=== PATIENT | female | born 1985 | race Caucasian/White ===

== ENCOUNTER 2023-06-23 01:45 | Outpatient (CLI) | payer OTHER, SELFPAY ==
--- OUTSIDE RECORDS SUMMARY | 2023-06-23 01:58 | XMS RPT_ITS | CCD ---
Author Name Unknown Address [address] [place] [address] Organization [facility] Care Team Providers Care Charging Machine Operator Name Role Phone Unavailable Primary Care Provider Unavailabl e MEKA SMITH Referring Unavailable GETACHEW FONSECA Attending Unavail able GETACHEW FONSECA Referring Unavail able GETACHEW FONSECA Attending Unavail able STORMY BARAJAS Referring Unavailable ALIYAH JIMENES Attending Unavailable FRED SMITHCA L Referring Unavailable DON QUINONES Attending Unavailable GETACHEW FONSECA Referring Unavail able MEKA SMITH L Referring Unavailable JENN, STORMY Referring Unavailable AMOS GRADY Attending Unavailable LUIS MEKA L Referring Unavailable BRENTON ASTORGA Attending Unavailable LUIS, MEKA L Referring Unavailable LUIS, MEKA L Attending Unavailable AMOS GRADY Referring Unavailable LUIS, MEKA L Attending Unavailable LUIS, MEKA L Referring Unavailable LUIS, MEKA L Attending Unavailable LUIS MEKA L Attending Unavailable STORMY BARAJAS Attending Unavailable JENN, STORMY Referring Unavailable LUIS MEKA L Attending Unavailable LUIS MEKA L Attending Unavailable Unavailable Primary Care Provider Unavailabl e Medications Current Medications Medication Drug Class(es) Dates Sig (Normalized) Sig (Original) Ethinyl Estradiol / norgestimate (1 source) Progestin, Estrogen Start: 08-31-2012 End: 03-07-2022 take 1 tablet by mouth once daily Norgestimate-Ethiny l Estradiol (ORTHO TRI-CYCLEN LO, 28,) 0.18/0.215/0.25 mg-25 mcg (28) Tab Take 1 tablet by mouth once daily. 3 Package 3 08/31/2012 03/07/2022 Discontinued Completed/Discontinued Medications Medication Drug Class(es) Dates Sig (Normalized) Sig (Original) aspirin 81 mg delayed release oral tablet (5 sources) Platelet Aggregation Inhibitor, Nonsteroidal Anti-inflammatory Drug Start: 03-06-2023 take 1 tablet by mouth once daily aspirin, enteric coated (ASPIRIN, ENTERIC COATED) 81 mg EC tablet Take 1 tablet by mouth once daily. 0 03/06/2023 Active Problems Active Problems Problem Classification Problem Date Documented Date Episodic/Chronic Diabetes or abnormal glucose tolerance complicating ; childbirth; or the puerperium (4 sources) Abnormal glucose complicating ; Translations: [Abnormal glucose level] Onset: 05-12-2023 06-15-2023 Episodic Immunizations and screening for infectious disease (8 sources) Patient encounter status; Translations: [Encounter for screening for human papillomavirus (HPV)] Episodic Other aftercare (1 source) Surgical follow-up; Translations: [Encounter for follow-up examination after completed treatment for conditions other than malignant neoplasm] Episodic Other complications of (3 sources) Missed miscarriage; Translations: [Missed ] Episodic Other complications of (1 source) Uncertain viability of ; Translations: [ with inconclusive viability, not applicable or unspecified] 01-05-2023 Episodic Other complications of (3 sources) Multigravida of advanced maternal age; Translations: [Supervision of elderly multigravida, first trimester] 02-02-2023 Episodic Other complications of (1 source) Supervision of elderly multigravida, second trimester; Translations: [Multigravida of advanced maternal age in second trimester] Onset: 06-15-2023 Episodic Other complications of (1 source) Supervision of elderly multigravida, first trimester; Translations: [AMA (advanced maternal age) multigravida 35+, first trimester] Onset: 03-18-2023 Episodic Other complications of (2 sources) High risk ; Translations: [Supervision of other high risk pregnancies, second trimester] Onset: 05-11-2023 05-11-2023 Episodic Other and delivery including normal (7 sources) Normal ; Translations: [Encounter for supervision of other normal , first trimester] Onset: 03-18-2023 01-05-2023 Episodic Other screening for suspected conditions (not mental disorders or infectious disease) (1 source) Cancer cervix screening status; Translations: [Encounter for screening for malignant neoplasm of cervix] Episodic Residual codes; unclassified (1 source) Gestation period, 8 weeks; Translations: [8 weeks gestation of ] 01-05-2023 Episodic Residual codes; unclassified (2 sources) Gestation period, 12 weeks; Translations: [12 weeks gestation of ] 02-02-2023 Episodic Residual codes; unclassified (1 source) Gestation period, 17 weeks; Translations: [17 weeks gestation of ] 03-06-2023 Episodic Residual codes; unclassified (2 sources) Gestation period, 19 weeks; Translations: [19 weeks gestation of ] 03-18-2023 Episodic Residual codes; unclassified (1 source) 23 weeks gestation of ; Translations: [23 weeks gestation of ] Onset: 05-11-2023 Episodic Residual codes; unclassified (1 source) 12 weeks gestation of ; Translations: [12 weeks gestation of ] Onset: 03-18-2023 Episodic Residual codes; unclassified (2 sources) Gestation period, 31 weeks; Translations: [31 weeks gestation of ] 06-15-2023 Episodic Residual codes; unclassified (2 sources) H/O: miscarriage; Translations: [Personal history of other complications of , childbirth and the puerperium] Onset: 05-11-2023 05-11-2023 Episodic Past or Other Problems Problem Classification Problem Date Documented Da te Episodic/Chronic Other complications of (20 sources) Elderly primigravida; Translations: [Supervision of elderly primigravida, unspecified trimester] Onset: 07-10-2022 Episodic Other complications of (3 sources) with inconclusive viability, not applicable or unspecified; Translations: [ with inconclusive viability] Onset: 01-05-2023 01-05-2023 Episodic Other complications of (1 source) Missed ; Translations: [Missed ] Onset: 07-14-2022 Episodic Residual codes; unclassified (1 source) 17 weeks gestation of ; Translations: [17 weeks gestation of ] Onset: 03-06-2023 Episodic Residual codes; unclassified (1 source) 8 weeks gestation of ; Translations: [8 weeks gestation of ] Onset: 02-02-2023 Episodic Spontaneous (3 sources) Incomplete miscarriage with complication; Translations: [Incomplete spontaneous without complication] Onset: 07-23-2022 Episodic Results Test Name Value Interpretation Reference Range Facil ity Vital Signs Date Time Vital Sign Value Performing Clinician Melinda mishra 06-15-2023 08:56-0500 Body weight 92.08 kg Brenton Astorga MD Work Phone: [facility] 06-15-2023 08:56-0500 Diastolic blood pressure 64 mm[Hg] Brenton Astorga MD Work Phone: [facility] 06-15-2023 08:56-0500 Systolic blood pressure 108 mm[Hg] Brenton Astorga MD Work Phone: [facility] 06-15-2023 08:26-0500 Body weight 92.63 kg Ob Ultrasound Work Phone: [facility] 03-18-2023 10:16-0500 Body weight 85.37 kg Aliyah Jimenes NUCLEAR FUEL PROCESSING TECHNICIAN.CNM Work Phone: [facility] 03-18-2023 10:16-0500 Diastolic blood pressure 72 mm[Hg] Aliyah Jimenes NUCLEAR FUEL PROCESSING TECHNICIAN.CNM Work Phone: [facility] 03-18-2023 10:16-0500 Systolic blood pressure 112 mm[Hg] Aliyah Jimenes NUCLEAR FUEL PROCESSING TECHNICIAN.CNM Work Phone: [facility] 03-06-2023 10:58-0500 Body weight 83.92 kg Amos Grady MD Work Phone: [facility] 03-06-2023 10:58-0500 Diastolic blood pressure 60 mm[Hg] Amos Grady MD Work Phone: [facility] 03-06-2023 10:58-0500 Systolic blood pressure 104 mm[Hg] Amos Grady MD Work Phone: [facility] 02-02-2023 13:14-0400 Body weight 81.65 kg Meka Smith MD Work Phone: [facility] 02-02-2023 13:14-0400 Diastolic blood pressure 68 mm[Hg] Meka Smith MD Work Phone: [facility] 02-02-2023 13:14-0400 Systolic blood pressure 110 mm[Hg] Meka Smith MD Work Phone: [facility] 01-05-2023 09:03-0400 Body height 162.6 cm Stormy Jenn NUCLEAR FUEL PROCESSING TECHNICIAN.LAB ANIMAL TECHNOLOGIST Work Phone: [facility] 01-05-2023 09:03-0400 Body weight 80.74 kg Stormy [place] NUCLEAR FUEL PROCESSING TECHNICIAN.LAB ANIMAL TECHNOLOGIST Work Phone: [facility] 01-05-2023 09:03-0400 Diastolic blood pressure 60 mm[Hg] Stormy Jenn NUCLEAR FUEL PROCESSING TECHNICIAN.LAB ANIMAL TECHNOLOGIST Work Phone: [facility] 01-05-2023 09:03-0400 Systolic blood pressure 112 mm[Hg] Stormy [place] NUCLEAR FUEL PROCESSING TECHNICIAN.LAB ANIMAL TECHNOLOGIST Work Phone: [facility] 07-29-2022 12:27-0400 Diastolic blood pressure 80 mm[Hg] Meka Smith MD Work Phone: [facility] 07-29-2022 12:27-0400 Heart rate 78 /min Meka Smith MD Work Phone: [facility] 07-29-2022 12:27-0400 Respiratory rate 12 /min Meka Smith MD Work Phone: [facility] 07-29-2022 12:27-0400 SaO2% (BldA) [Mass fraction] 98 % Meka Smith MD Work Phone: [facility] 07-29-2022 12:27-0400 Systolic blood pressure 120 mm[Hg] Meka Smith MD Work Phone: [facility] 07-29-2022 11:13-0400 Body weight 80.29 kg Meka Smith MD Work Phone: [facility] 07-23-2022 15:19-0400 Body weight 81.65 kg Meka Smith MD Work Phone: [facility] 07-23-2022 15:19-0400 Diastolic blood pressure 70 mm[Hg] Meka Smith MD Work Phone: [facility] 07-23-2022 15:19-0400 Systolic blood pressure 108 mm[Hg] Meka Smith MD Work Phone: [facility] 07-14-2022 15:26-0400 Body height 162.6 cm Getachew Franklin MD Work Phone: [facility] 07-14-2022 15:26-0400 Body weight 82.01 kg Getachew Franklin MD Work Phone: [facility] 07-14-2022 15:26-0400 Diastolic blood pressure 70 mm[Hg] Getachew Franklin MD Work Phone: [facility] 07-14-2022 15:26-0400 Systolic blood pressure 110 mm[Hg] Getachew Franklin MD Work Phone: [facility] 03-25-2022 16:08-0500 Diastolic blood pressure 78 mm[Hg] Stormy Jenn NUCLEAR FUEL PROCESSING TECHNICIAN.LAB ANIMAL TECHNOLOGIST Work Phone: [facility] 03-25-2022 16:08-0500 Heart rate 76 /min Stormy [place] NUCLEAR FUEL PROCESSING TECHNICIAN.LAB ANIMAL TECHNOLOGIST Work Phone: [facility] 03-25-2022 16:08-0500 Systolic blood pressure 118 mm[Hg] Stormy [place] NUCLEAR FUEL PROCESSING TECHNICIAN.LAB ANIMAL TECHNOLOGIST Work Phone: [facility] 03-25-2022 15:55-0500 Body height 160.7 cm Stormy Jenn NUCLEAR FUEL PROCESSING TECHNICIAN.LAB ANIMAL TECHNOLOGIST Work Phone: [facility] 03-25-2022 15:55-0500 Body weight 80.29 kg Stormy [place] NUCLEAR FUEL PROCESSING TECHNICIAN.LAB ANIMAL TECHNOLOGIST Work Phone: [facility] 03-07-2022 07:22-0500 Body height 160.7 cm Stormy [place] NUCLEAR FUEL PROCESSING TECHNICIAN.LAB ANIMAL TECHNOLOGIST Work Phone: [facility] 03-07-2022 07:22-0500 Body weight 79.38 kg Stormy [place] NUCLEAR FUEL PROCESSING TECHNICIAN.LAB ANIMAL TECHNOLOGIST Work Phone: [facility] 03-07-2022 07:22-0500 Diastolic blood pressure 70 mm[Hg] Stormy Jenn NUCLEAR FUEL PROCESSING TECHNICIAN.LAB ANIMAL TECHNOLOGIST Work Phone: [facility] 03-07-2022 07:22-0500 Systolic blood pressure 110 mm[Hg] Stormy Jenn NUCLEAR FUEL PROCESSING TECHNICIAN.LAB ANIMAL TECHNOLOGIST Work Phone: [facility] Encounters Encounter Date Encounter Type Care Provider Facility Start: 06-15-2023 End: 06-15-2023 ambulatory MEKA SMITH Facility:[facility] Start: 06-15-2023 End: 06-15-2023 Patient encounter procedure District Commercial Superintendent Avani Ultrasound Work Phone: OB/Gynecology Procedures Date Procedure Procedure Detail Performing Clinician Start: 06-15-2023 URINE OB DIP B/O Brenton madrid MD Work Phone: Start: 06-15-2023 Us preg uterus after 1st trimest 04/27 gestation Meka Smith MD Work Phone: Start: 03-18-2023 URINE OB DIP B/O Olivia Jimenes NUCLEAR FUEL PROCESSING TECHNICIAN.CNM Work Phone: Start: 03-18-2023 Us preg uterus after 1st trimest / gestation Meka Smith MD Work Phone: Start: 03-06-2023 URINE OB DIP B/O Amos Grady MD Work Phone: Start: 02-02-2023 Antibody screen MEKA SMITH Plan of Treatment Date Care Activity Detail Author Start: 06-15-2033 Urine microalbumin profile DTaP,Tdap,Td Vaccine (2 - Td or Tdap) [facility] Start: 03-07-2027 HPV TESTING HPV TESTING [facility] Start: 03-07-2027 PAP TESTING PAP TESTING [facility] Start: 03-07-2027 Screening for malign ant neoplasm of cervix [facility] Start: 04-27-2023 Depression Assessment Depression Ass essment [facility] Start: 03-06-2023 End: 06-05-2023 ALPHA FETOPRO MATERNAL [facility] Work Phone: Immunizations Immunization Date Immunization Notes Care Provider Fa yoan 06-15-2023 tetanus toxoid, redu juan jose diphtheria toxoid, and acellular pertussis vaccine, adsorbed Ob Ultrasound Work Phone: [facility] 02-02-2023 influenza, injectabl e, quadrivalent, contains preservative Meka Smith MD Work Phone: [facility] Payers Date Payer Category Payer Unknown [id number] 2018 Unknown [id number] Social History Date Type Detail Facility Start: 06-14-2012 Tobacco smoking stat us [facility] Never smoked tobacco [facility] Start: 06-14-2012 Tobacco use and exposure Smokeless tobacco non-user [facility] Start: 03-07-2022 End: 03-25-2022 Alcohol intake Current drinker of alcohol (finding) [facility] Start: 1985 Sex Assigned At Female [facility] Start: 02-25-2022 End: 03-25-2022 Exposure to SARS-CoV-2 (event) Not sure [facility] Work Phone: Start: 07-10-2022 End: 05-11-2023 Alcohol intake Ex-drinker (finding) [facility] Start: 07-10-2022 Education 17 [facility] Start: 05-30-2022 [facility] Start: 01-05-2023 End: 05-11-2023 History of Social function [facility] Start: 01-05-2023 End: 05-11-2023 Tobacco use panel [facility] National Score (1-10 0), lower number is lower risk 60 [facility] Start: 03-05-2022 Gender identity Identifies as female gender (finding) [facility] Start: 03-05-2022 Sexual orientation Heterosexual (mike ponce) [facility] Goals Date Patient Goal Desired Activity /State Personal health goal Clinical Notes 03-07-2022 to 06-15-2023 Quick Notes - Brenton Astorga MD - 06/15/2023 9:24 AM Keli Dallas Ma - 06/15/2023 9:01 AM ESTPatient InstructionsPatient InstructionsPatient InstructionsPatient Instructions Note Date & Type Note Facility 06-15-2023 Note HNO ID: [id number] Author: ?, ?, ? Service: ? Author Type: ? Type: Progress Notes Filed: 06/15/2023 18:12 Note Text: Patient identified by name and date of . Aliyah Dang presents today for a vaccination of Tdap. Patient denies an allergy to latex: yes Patient denies a severe (life-threatening) allergy to a previous dose of Tdap, DTP, DTaP, DT or Td vaccine. Yes Patient denies history of epilepsy or neurological problems: Yes Patient is afebrile and denies being moderately or severely ill: Yes Patient denies history of Guillain-Fleming Syndrome (a severe paralytic illness): Yes Tdap Adacel injection was given without incident. See immunizations for details of immunizations administered today. VIS sheet provided: Yes Provider Gauri was present in office at time of injection. Keli Loredo Ma [facility] 06-15-2023 Miscellaneous Notes Formattin g of this note might be different from the original. SW- Pt doing well. No pain, ctx, vb, lof. Good FM PE: Gen- NAD, well appearing Abd- Gravid See flowsheet A/p 31 wk gestation - Growth US today and final report pending - Tdap today - Discussed upcoming expectations and questions answered - Reviewed diet and exercise in Brenton Astorga DO documented in this encounter [facility] 06-15-2023 History of Presen t illness Narrative Patient identified by name and date of . Aliyah Dang presents today for a vaccination of Tdap. Patient denies an allergy to latex: yes Patient denies a severe (life-threatening) allergy to a previous dose of Tdap, DTP, DTaP, DT or Td vaccine. Yes Patient denies history of epilepsy or neurological problems: Yes Patient is afebrile and denies being moderately or severely ill: Yes Patient denies history of Guillain-Fleming Syndrome (a severe paralytic illness): Yes Tdap Adacel injection was given without incident. See immunizations for details of immunizations administered today. VIS sheet provided: Yes Provider Gauri was present in office at time of injection. Keli Loredo Ma documented in this encounter [facility] 06-15-2023 Instructions Keli Loredo Ma - 06/15/2023 8:56 AM EST SEQUENTIAL SCREENINGS The [facility] offers sequential screenings for women who are interested in screenings for chromosomal abnormalities and certain defects during a . The sequential screen combines ultrasound and blood tests to determine the risk of chromosomal abnormalities, including Down's Syndrome (Trisomy 21) and Trisomy 18, as well as open neural tube defects including spina bifida. Ultrasound examination is performed between 11 weeks and 13 weeks gestational age. Blood tests are drawn after the ultrasound and again later in the between 15 and 21 weeks gestational age. Please let your physician know if you are interested in this testing. It will require an appointment with our electrocardiogram technician. This is not an ultrasound performed by a physician in our office during a routine visit. SIGNS AND SYMPTOMS OF LABOR 1. Contractions every 10 minutes or more often 2. Clear, pink, or brownish fluid (water) leaking from vagina 3. Feeling that baby is pushing down, pressure 4. Low, dull backache 5. Cramps that feel like a period 6. Cramps with or without diarrhea If you notice any of the above symptoms, contact our office at [phone] and ask to speak with a nurse. After hours, you can call doctors registry at [phone] OR call [facility] at [phone] and ask to have the doctor electronic game developer paged. If you consider this an emergency, dial 9-1-9 or go to your nearest emergency department. NEED HELP? Are you dealing with a violent or abusive relationship? Are you a victim of rape or sexual assult? Call [facility] ([facility] 24 hour Crisis Hotline: 148.489.2182 or 503-948-4138. MANUAL Your Guide to a Healthy manual is now on-line. Visit [email or web address] to download your free copy documented in this encounter [facility] 03-18-2023 Miscellaneous Notes Formattin g of this note might be different from the original. Anatomy ultrasound reviewed. No abnormalities identified. Follow up as clinically indicated. Please place copy in ob chart. Meka Smith MD documented in this encounter [facility] 03-18-2023 Miscellaneous Notes Formattin g of this note might be different from the original. Aliyah Dang is a 37 year old female who presents at 19w0d for a routine visit. Just completed anatomy ultrasound. Awaiting final results. No movement to date. Continues to have irregular nausea/vomiting. Taking Zofran occasionally. Some acid reflux- recommended taking Pepcid. Some swelling in feet after working. Recommended compression stockings. Denies headache, visual changes, chest pain, shortness of breath, vaginal bleeding, leakage of fluid, or dysuria. Size equal to dates. 10 lbs TWG. PTL precautions reviewed. RTC in 4 weeks or sooner if needed. Aliyah Jimenes APRN.CNM documented in this encounter [facility] 03-18-2023 Instructions Aliyah Jimenes APRN.CNM - 03/18/2023 10:15 AM EST Pepcid 20 mg by mouth up to twice daily for acid reflux SEQUENTIAL SCREENINGS The [facility] offers sequential screenings for women who are interested in screenings for chromosomal abnormalities and certain defects during a . The sequential screen combines ultrasound and blood tests to determine the risk of chromosomal abnormalities, including Down's Syndrome (Trisomy 21) and Trisomy 18, as well as open neural tube defects including spina bifida. Ultrasound examination is performed between 11 weeks and 13 weeks gestational age. Blood tests are drawn after the ultrasound and again later in the between 15 and 21 weeks gestational age. Please let your physician know if you are interested in this testing. It will require an appointment with our electrocardiogram technician. This is not an ultrasound performed by a physician in our office during a routine visit. SIGNS AND SYMPTOMS OF LABOR 1. Contractions every 10 minutes or more often 2. Clear, pink, or brownish fluid (water) leaking from vagina 3. Feeling that baby is pushing down, pressure 4. Low, dull backache 5. Cramps that feel like a period 6. Cramps with or without diarrhea If you notice any of the above symptoms, contact our office at [phone] and ask to speak with a nurse. After hours, you can call doctors registry at [phone] OR call [facility] at [phone] and ask to have the doctor electronic game developer paged. If you consider this an emergency, dial 0-4-8 or go to your nearest emergency department. NEED HELP? Are you dealing with a violent or abusive relationship? Are you a victim of rape or sexual assult? Call [facility] ([place]) 24 hour Crisis Hotline: 287.232.2008 or 066-255-8532. MANUAL Your Guide to a Healthy manual is now on-line. Visit [email or web address] to download your free copy documented in this encounter [facility] 03-06-2023 Miscellaneous Notes Formattin g of this note might be different from the original. KJ - No VB/LOF/ctxs. She reports some LE swelling. A&P: Anatomy US scheduled AFP today Amos Grady MD documented in this encounter [facility] 03-06-2023 Mary Jo Sawyer Ma - 03/06/2023 10:41 AM EST SEQUENTIAL SCREENINGS The [facility] offers sequential screenings for women who are interested in screenings for chromosomal abnormalities and certain defects during a . The sequential screen combines ultrasound and blood tests to determine the risk of chromosomal abnormalities, including Down's Syndrome (Trisomy 21) and Trisomy 18, as well as open neural tube defects including spina bifida. Ultrasound examination is performed between 11 weeks and 13 weeks gestational age. Blood tests are drawn after the ultrasound and again later in the between 15 and 21 weeks gestational age. Please let your physician know if you are interested in this testing. It will require an appointment with our electrocardiogram technician. This is not an ultrasound performed by a physician in our office during a routine visit. SIGNS AND SYMPTOMS OF LABOR 1. Contractions every 10 minutes or more often 2. Clear, pink, or brownish fluid (water) leaking from vagina 3. Feeling that baby is pushing down, pressure 4. Low, dull backache 5. Cramps that feel like a period 6. Cramps with or without diarrhea If you notice any of the above symptoms, contact our office at [phone] and ask to speak with a nurse. After hours, you can call doctors registry at [phone] OR call [facility] at [phone] and ask to have the doctor electronic game developer paged. If you consider this an emergency, dial 6-5-6 or go to your nearest emergency department. NEED HELP? Are you dealing with a violent or abusive relationship? Are you a victim of rape or sexual assult? Call [facility] ([place]) 24 hour Crisis Hotline: 111.638.3095 or 436-731-8535. MANUAL Your Guide to a Healthy manual is now on-line. Visit [email or web address] to download your free copy documented in this encounter [facility] 02-03-2023 Miscellaneous Notes Formattin g of this note might be different from the original. Please see pt's [employer] message and advise. Liliana Hancock LPN documented in this encounter [facility] 02-02-2023 Miscellaneous Notes Formattin g of this note might be different from the original. RR- VB No. LOF No. CTXS No. Movement: absent. Other c/o: mild nausea w/ occas emesis but improving Medication list reviewed. Physical Exam See Flow Sheet Abd: soft, nontender, gravid Ext: edema: Trace A/P 12w5d Estimated Date of Delivery: 08/12/23 Labs: all labso rodered d/w her maternity 21 and carrier screen and desires these NT today schedule anatomy scan flu vaccine today. reviewed ASA indication and she will get this AFP next visit Meka Smith M.D. documented in this encounter [facility] 02-02-2023 Instructions Mary Jo Llamas Ma - 02/02/2023 12:59 PM EDT SEQUENTIAL SCREENINGS The [facility] offers sequential screenings for women who are interested in screenings for chromosomal abnormalities and certain defects during a . The sequential screen combines ultrasound and blood tests to determine the risk of chromosomal abnormalities, including Down's Syndrome (Trisomy 21) and Trisomy 18, as well as open neural tube defects including spina bifida. Ultrasound examination is performed between 11 weeks and 13 weeks gestational age. Blood tests are drawn after the ultrasound and again later in the between 15 and 21 weeks gestational age. Please let your physician know if you are interested in this testing. It will require an appointment with our electrocardiogram technician. This is not an ultrasound performed by a physician in our office during a routine visit. SIGNS AND SYMPTOMS OF LABOR 1. Contractions every 10 minutes or more often 2. Clear, pink, or brownish fluid (water) leaking from vagina 3. Feeling that baby is pushing down, pressure 4. Low, dull backache 5. Cramps that feel like a period 6. Cramps with or without diarrhea If you notice any of the above symptoms, contact our office at [phone] and ask to speak with a nurse. After hours, you can call doctors registry at [phone] OR call [facility] at [phone] and ask to have the doctor electronic game developer paged. If you consider this an emergency, dial 9--1 or go to your nearest emergency department. NEED HELP? Are you dealing with a violent or abusive relationship? Are you a victim of rape or sexual assult? Call [facility] ([place]) 24 hour Crisis Hotline: 185.562.6776 or 934-504-2310. MANUAL Your Guide to a Healthy manual is now on-line. Visit [email or web address] to download your free copy documented in this encounter [facility] 01-05-2023 Note HNO ID: [id number] Author: Stormy Barajas APRN.LAB ANIMAL TECHNOLOGIST Service: ? Author Type: Nurse Practitioner Type: Progress Notes Filed: 01/05/2023 9:38 AM Note Text: INITIAL OB ASSESSMENT OB Provider: Stormy Barajas HPI: Aliyah is a 37 year old White Female here to establish Obstetrical Care. Patient's last menstrual period was 11/07/2022. from OB Dating Form. Cycles regular was planned Complaints: None OB History T0 L0 SAB1 IAB0 Ectopic0 Multiple0 Live Births0 Previous history: Prior : never History of 4th degree laceration: NA History of shoulder dystocia: No History of Hypertensive disorders including pre-eclampsia, chronic hypertension or gestational hypertension: NA History of gestational diabetes: No Patient's Risk Screening for delivery: Have you had a prior ontiveros between 20w and 36w6d?: No MEDICAL/PSYCHOSOCIAL HISTORY: History of hemorrhage or bleeding concerns: No Thyroid Disease: No History of chronic hypertension: No History of pre-existing diabetes: No No results found for: ABORHD No weight on file for this encounter. History of abnormal pap: No Prior treatment for cervical dysplasia: none. 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 I don't have enough money to pay my bills: Never Within the past 12 months, have you worried that your food would run out before you had money to buy more: Never In the past 12 months, has lack of reliable transportation kept you from going to medical appointments or work, or from keeping things needed for daily living: Never In the past 12 months, have you had any concerns about having a place to live, or about the condition or quality of your housing: Never Are there any cultural or spiritual needs we should be aware of: No Depression: denies symptoms of depression. OB Depression and Anxiety Screening- This Encounter (since 01/04/2023) Over the past 2 weeks have you felt down, depressed, or hopeless? Negative Over the past two weeks, have you felt little interest or pleasure in doing things?? 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 2 capsule 0 prental multivitamin 27 mg iron- 800 mcg tablet Take 1 tablet by mouth once daily. L.acid/B.animalis,bifidum/FOS (PROBIOTIC COMPLEX ORAL) Take by mouth. No current facility-administered medications for this visit. Allergies As of Date: 01/05/2023 (No Known Allergies) Fully Assessed 01/05/2023 Does patient have penicillin allergy: No REVIEW OF SYSTEMS: GENERAL: Negative for: Fever or Chills HEENT: Negative for: Headache, Impaired Vision, Ringing in Ears, Nosebleeds NECK: Negative for: Swelling, Pain, Stiffness RESPIRATORY: Negative for: Cough, Shortness of breath, Wheezing GASTROINTESTINAL: Positive for: Nausea and Vomiting MUSCULOSKELETAL: Negative for: Muscle or joint pain, stiffness, Joint swelling NEUROLOGIC/PSYCHIATRIC: Negative for: Weakness, Paralysis, Numbness, Tingling, Tremor, Anxiety, Depression, Memory loss SKIN: Negative for: Rash, Itching GENITOURINARY: Negative for: vaginal itching, vaginal discharge, hematuria or dysuria PHYSICAL EXAM: LMP 11/07/2022 GENERAL: pleasant in no apparent distress DERMATOLOGY: Normal, without lesions, non-icteric, and non-hirsute NECK: Supple, full range of motion, no adenopathy, and thyroid normal CHEST: Normal inspiratory effort BREAST: deferred ABDOMEN: soft, non-tender, and no masses NEURO: alert and oriented x (more content not included)... [facility] 01-05-2023 History of Presen t illness Narrative Images from the original note were not included. INITIAL OB ASSESSMENT OB Provider: Stormy Barajas HPI: Aliyah is a 37 year old White Female here to establish Obstetrical Care. Patient's last menstrual period was 11/07/2022. from OB Dating Form. Cycles regular was planned Complaints: None OB History T0 L0 SAB1 IAB0 Ectopic0 Multiple0 Live Births0 Previous history: Prior : never History of 4th degree laceration: NA History of shoulder dystocia: No History of Hypertensive disorders including pre-eclampsia, chronic hypertension or gestational hypertension: NA History of gestational diabetes: No Patient's Risk Screening for delivery: Have you had a prior ontiveros between 20w and 36w6d?: No MEDICAL/PSYCHOSOCIAL HISTORY: History of hemorrhage or bleeding concerns: No Thyroid Disease: No History of chronic hypertension: No History of pre-existing diabetes: No No results found for: ABORHD No weight on file for this encounter. History of abnormal pap: No Prior treatment for cervical dysplasia: none. 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 I don't have enough money to pay my bills: Never Within the past 12 months, have you worried that your food would run out before you had money to buy more: Never In the past 12 months, has lack of reliable transportation kept you from going to medical appointments or work, or from keeping things needed for daily living: Never In the past 12 months, have you had any concerns about having a place to live, or about the condition or quality of your housing: Never Are there any cultural or spiritual needs we should be aware of: No Depression: denies symptoms of depression. OB Depression and Anxiety Screening- This Encounter (since 01/04/2023) Over the past 2 weeks have you felt down, depressed, or hopeless? Negative Over the past two weeks, have you felt little interest or pleasure in doing things? 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 2 capsule 0 prental multivitamin 27 mg iron- 800 mcg tablet Take 1 tablet by mouth once daily. L.acid/B.animalis,bifidum/FOS (PROBIOTIC COMPLEX ORAL) Take by mouth. No current facility-administered medications for this visit. Allergies As of Date: 01/05/2023 (No Known Allergies) Fully Assessed 01/05/2023 Does patient have penicillin allergy: No REVIEW OF SYSTEMS: GENERAL: Negative for: Fever or Chills HEENT: Negative for: Headache, Impaired Vision, Ringing in Ears, Nosebleeds NECK: Negative for: Swelling, Pain, Stiffness RESPIRATORY: Negative for: Cough, Shortness of breath, Wheezing GASTROINTESTINAL: Positive for: Nausea and Vomiting MUSCULOSKELETAL: Negative for: Muscle or joint pain, stiffness, Joint swelling NEUROLOGIC/PSYCHIATRIC: Negative for: Weakness, Paralysis, Numbness, Tingling, Tremor, Anxiety, Depression, Memory loss SKIN: Negative for: Rash, Itching GENITOURINARY: Negative for: vaginal itching, vaginal discharge, hematuria or dysuria PHYSICAL EXAM: LMP 11/07/2022 GENERAL: pleasant in no apparent distress DERMATOLOGY: Normal, without lesions, non-icteric, and non-hirsute NECK: Supple, full range of motion, no adenopathy, and thyroid normal CHEST: Normal inspiratory effort BREAST: deferred ABDOMEN: soft, non-tender, and no masses NEURO: alert and oriented x3,exam grossly non-focal PELVIS: External genitalia normal without lesions. Perineal body intact. No vaginal or cervical lesions. Cervix closed. No adnexal masses or tenderness. Limited OB ultrasound exam: single intrauterine and positive cardiac activity OB Risk Screening: Completed, no positive findings documented. SBIRT Aliyah Dang was given the 4P's screening tool. Aliyah answered as follows: OB Opioid Screening - Last Recorded (since 04/10/2022) Did any of your parents have a problem with alcohol or other drug use? Yes father-ETOH Does your partner have a problem with alcohol or other drug use? No In the past, have you had difficulties in your life because of alcohol or other drugs, including prescription medications? No In the past month have you drunk any alcohol or used other drugs? No Are you taking medication for pain during the either prescribed or not? No Based on the screen and further questions, she is considered at Low risk due to:No past or current use. Positive reinforcement of current behavior. Plan to rescreen early third trimester. Stormy Barajas APRN.LAB ANIMAL TECHNOLOGIST ASSESSMENT: 37 year old at 8w3d wks gestational age PLAN: 1) Patient oriented to practice. Patient given new OB orientation folder. Discussed nutrition, folic acid supplementation, dietary guidelines, exercise, smoking, alcohol, caffeine, and drug use. Discussed gestational weight gain guidelines. Discussed routine OB labs including STD/HIV. Discussed how to access Your guide to a health and the [employer]. Discussed aneuploidy and carrier screening. Regarding aneuploidy screening, nuchal translucency/first trimester early anatomy ultrasound and NIPT were discussed. Regarding carrier screening, the myriad screen was discussed. The risks/benefits and limitations of NIPT/aneuploidy screening were reviewed including the potential for false negative and false positive results. We discussed the availability of professional-society guided carrier screening and reviewed the conditions screened and limitations of screening. The availability of genetic counseling was reviewed. Information on aneuploidy/carrier screening was provided. The patient chooses: Aneuploidy screening: chooses to proceed with First trimester early anatomy ultrasound (12-13w6d) Reviewed midwifery and executive vice president of sales services that are available. 2) AMA: Aneuploidy screening reviewed Follow up in 4 weeks or sooner prn. Stormy Barajas APRN.CNP documented in this encounter [facility] 01-05-2023 Instructions Prashant Lora Cma - 01/05/2023 8:47 AM EDT Please select the following link to access the [facility] Your Guide to a Healthy . [email or web address] documented in this encounter [facility] 08-08-2022 Note HNO ID: [id number] Author: Meka Smith MD Service: ? Author Type: Physician Type: Progress Notes Filed: 08/08/2022 3:14 PM Note Text: VIRTUAL VISIT PROGRESS NOTE This is a virtual visit using Quotte video visit. It required patient-provider interaction for the medical decision making as documented below. I have communicated my name and active licensure. The patient's identity and physical location were verified at the time of this visit. Either the patient or their legal telephone service representative has been informed of the risks and benefits of -- and alternatives to -- treatment through a remote evaluation and consents to proceed with the evaluation remotely. Aliyah Dang is a 37 year old female seen for f/u miscarriage and IPAS in the office. Did well after surgery. Light bleeding for a few days that has stopped. No fever or chills. Good support at home. . HISTORY REVIEWED (electronic chart updated): PAST MEDICAL HISTORY Diagnosis Date NEGATIVE MEDICAL HISTORY PAST SURGICAL HISTORY Procedure Laterality Date APPENDECTOMY FAMILY HISTORY Problem Relation Age of Onset Hypertension Mother Lipids Mother Depression Mother other (accidental ) Father work accident No Known Problems Sister Diabetes Maternal Grandmother Hypertension Maternal Grandmother Aneurysm Maternal Grandfather Heart Maternal Grandfather Dementia Paternal Grandmother Emphysema Paternal Grandfather Social History Tobacco Use Smoking status: Never Smokeless tobacco: Never Vaping Use Vaping Use: Never used Substance Use Topics Alcohol use: Not Currently Comment: socially Drug use: No Current Outpatient Medications Medication Sig doxycycline hyclate (VIBRAMYCIN) 100 mg capsule Take 1 capsule by mouth as directed. prental multivitamin 27 mg iron- 800 mcg tablet Take 1 tablet by mouth once daily. L.acid/B.animalis,bifidum/FOS (PROBIOTIC COMPLEX ORAL) Take by mouth. No current facility-administered medications for this visit. ALLERGIES No Known Allergies PHYSICAL EXAMINATION: VIDEO EXAM: (if completed, performed via video enabled technology) GENERAL: alert and appropriate, in no distress, well-hydrated, well nourished, and happy, smiling, interactive ASSESSMENT: completed SAB, s/p IPAS in office. Doing well. PLAN: D/ wher timing of next menses. Ok to attempt . Cont. PNV. Questions answered. Call w/ +HCG or any questions or concerns. There are no Patient Instructions on file for this visit. Meka Smith MD [facility] 08-08-2022 History of Presen t illness Narrative VIRTUAL VISIT PROGRESS NOTE This is a virtual visit using Quotte video visit. It required patient-provider interaction for the medical decision making as documented below. I have communicated my name and active licensure. The patient's identity and physical location were verified at the time of this visit. Either the patient or their legal telephone service representative has been informed of the risks and benefits of -- and alternatives to -- treatment through a remote evaluation and consents to proceed with the evaluation remotely. Aliyah Dang is a 37 year old female seen for f/u miscarriage and IPAS in the office. Did well after surgery. Light bleeding for a few days that has stopped. No fever or chills. Good support at home. . HISTORY REVIEWED (electronic chart updated): PAST MEDICAL HISTORY Diagnosis Date NEGATIVE MEDICAL HISTORY PAST SURGICAL HISTORY Procedure Laterality Date APPENDECTOMY FAMILY HISTORY Problem Relation Age of Onset Hypertension Mother Lipids Mother Depression Mother other (accidental ) Father work accident No Known Problems Sister Diabetes Maternal Grandmother Hypertension Maternal Grandmother Aneurysm Maternal Grandfather Heart Maternal Grandfather Dementia Paternal Grandmother Emphysema Paternal Grandfather Social History Tobacco Use Smoking status: Never Smokeless tobacco: Never Vaping Use Vaping Use: Never used Substance Use Topics Alcohol use: Not Currently Comment: socially Drug use: No Current Outpatient Medications Medication Sig doxycycline hyclate (VIBRAMYCIN) 100 mg capsule Take 1 capsule by mouth as directed. prental multivitamin 27 mg iron- 800 mcg tablet Take 1 tablet by mouth once daily. L.acid/B.animalis,bifidum/FOS (PROBIOTIC COMPLEX ORAL) Take by mouth. No current facility-administered medications for this visit. ALLERGIES No Known Allergies PHYSICAL EXAMINATION: VIDEO EXAM: (if completed, performed via video enabled technology) GENERAL: alert and appropriate, in no distress, well-hydrated, well nourished, and happy, smiling, interactive ASSESSMENT: completed SAB, s/p IPAS in office. Doing well. PLAN: D/ wher timing of next menses. Ok to attempt . Cont. PNV. Questions answered. Call w/ +HCG or any questions or concerns. There are no Patient Instructions on file for this visit. Meka Smith MD documented in this encounter [facility] 07-29-2022 Note HNO ID: [id number] Author: Meka Smith MD Service: ? Author Type: Physician Type: Progress Notes Filed: 07/29/2022 1:22 PM Note Text: Pre Procedure Assessment: Aliyah Dang is a 37 year old here for an HAYDEE procedure. Patient's last menstrual period was Patient's last menstrual period was 05/16/2022 (exact date). (approximate). Reason for procedure: Incomplete Anxiolytic Checklist Has ride home? Yes Current use of prescribed or non-prescribed opioids or benzos: No Medications: Provided by office:Toradol 60 mg IM Blood Type: A+ Hemoglobin: Hemoglobin Date Value Ref Range Status 07/14/2022 12.5 11.5 - 15.5 g/dL Final Rhophylac Administered:No Procedure end time: 1208 pm Post Procedure Assessment: Time of first post-procedure assessment: 1210 pm Vitals: BP 122/88 HR 75 SpO2 99% RR 12 Bleeding:Light Pain ratin Time of second post-procedure assessment: 1227 pm Vitals: BP 120/80 HR 78 SpO2 98 % RR 12 Bleeding:Moderate Pain Ratin Constance Palomino RN UNIVERSAL PROTOCOL / SAFETY CHECKLIST Procedure to be Performed: IPAS Brief TVUS done, still w/ some debris in uterus, heterogenous 2.6x 3 x 1.8 cm. Sign In: A Moment of CARE was completed. Personnel directly involved with the procedure wore the appropriate PPE (Personal Protective Equipment). Patient/Surrogate Stated/Verified: PATIENT VERIFIED(optional for EMERGENT procedures): Patient name, Date of , Relevant allergies, and The intended procedure Time Out Communication: Intended patient and procedure match the source documents. Consent documented and matches the intended procedure. Relevant labs, photos, and/or imaging studies have been reviewed. No implant(s) inserted. Sign Out: SIGN OUT (optional for EMERGENT procedures): All specimen containers correctly labeled. All instruments, equipment, possible retained foreign bodies accounted for. Post-procedure follow-up management communicated and Plan of Care Visit completed when applicable. Meka Smith M.D. Procedure note: Speculum was placed in the vagina. After prepping the cervix with betadine paracervical block was performed using 10cc of 0.5% lidocaine with 1:100,000 epi. Cervix was grasped with single tooth tenaculum. Cervix was dilated. Using sterile technique, the Manual Vacuum Aspiration device with size 6 cannula was inserted into the uterus and contents were evacuated. Post-procedure ultrasound confirmed no retained tissue. Post-procedure vital signs were obtained and stable Specimen was sent to pathology Patient tolerated procedure well. PLAN: Patient was advised to observe for signs and symptoms of infection including but not limited to fever, malodorous vaginal discharge and/or pain. Bleeding expectations were reviewed. Follow up: in 1-2 weeks or prn Meka Smith MD [facility] Referral ID Status Reason Start Date Expiration Date Visits Re quested Visits Authorized [id number] Closed 07/24/2022 04/26/2023 1 1 [facility]04-04-2023 NoteHNO ID: [id number] Author: Constance Palomino RN Service: ? Author Type: ? Type: Progress Notes Filed: 07/30/2022 4:37 PM Note Text: Please file pended CAM order for patients procedure today. [facility]* Patient Instructions* Constance Palomino RN - 07/29/2022 11:36 AM EDT Information and Instructions: After a Manual Uterine Aspiration (IPAS) Procedure Bleeding Most people have some bleeding after an aspiration procedure. The amount differs for each everyone,ranging from no bleeding to moderate period-like bleeding and lasting for a few days to 2-6 weeks. It is normal to have blood clots when you stand up or use the bathroom during the first few days. It is ok to be as active as you feel ready to be. You may notice more bleeding and cramping during activity. Please call if you are completely soaking through a pad every hour for 2 hours, or passing multiplelarge clots or larger and larger clots. Cramping Most women have some cramping after the procedure. The amount of discomfort varies, as everyone experiences pain in a different way. Some women find that a heating pad or hot water bottle on the stomach or back helps. If you don t have a heating pad, put some rice into a sock and heat it in the microwave, but beware, it s hot! Youmay also take ibuprofen (Motrin/ Advil) or naproxen (Aleve). If you can t take either of those medications you may use acetaminophen (Tylenol). Please call if you have severe pain or cramps that are not relieved by the pain medication. Fever Please call if your temperature is 100.4 degrees or higher for more than 2 hours. Fever can be a sign of infection, so call your doctor if you are feeling sick. You may have received a medication called misoprostol, which can cause a fever on the day of your procedure that goes away on it's own and is not concerning. symptoms You may have symptoms such as nausea, breast tenderness, or fatigue that last for a few days after the procedure. You may also notice some nipple discharge or breast swelling. If this occurs, wear a supportive bra and avoid stimulation. You may also use a cold compress. Your test may remain positive for up to 4 weeks. Please call if you have symptoms that last longer than 7 - 10 days. control For most people, it is physically possible (though unlikely) to become in the next 2 - 4 weeks, so it is important to start a control method if you are not planning a right away. Please discuss this with your provider if you have not already chosen a method. If you would like to become soon after this procedure, please discuss this with your doctor. Follow up Most women do not need a follow up appointment. Your doctor may recommend one, or you may choose toschedule one if you have any concerns, problems, or questions. Please do not put anything in your vagina for 1 week (no vaginal intercourse, toys, tampons, or douching). Do not swim or use hot tubs for 1 week. Baths by yourself (do not share water for 2 weeks) and showers are OK. Important Phone Numbers: [facility] Appointments in Examination Grader ( Early Assessment Clinics) Edith Ma [facility] at [phone] [facility] at [phone] [facility] at [phone] After 4:30 PM or on weekends, you may reach the on-call Examination Grader by calling the clinic where you wereseen. This will automatically transfer you to a contracted answering service, who will then page the appropriate provider. Most calls are returned within 15-20 minutes depending on other direct patient care. When to call the doctor: If your temperature is 100.4 degrees or higher for more than 2 hours. If you have heavy bleeding and soak through more than 2 pads in an hour for 2 hours in a row. If you have severe pain or cramps that are not relieved by the pain medication. LOSS RESOURCES Physical recovery from loss from a spontaneous miscarriage, ectopic , D&C, or a D&E may take several weeks. However, emotional recovery can take longer, and is individualized to each person. Many people have different feelings and experiences with loss or termination. Grief is a normal part of the healing process. Taking time to heal both physically and emotionally after a loss is important. Above all,don t blame yourself. Counseling is available to help you cope with your loss. A loss support group might also be a valuable resource to you and your partner. ONLINE RESOURCES Unspoken Grief: an online miscarriage support resource for miscarriage, stillbirth and loss unspokengrief.org A Heartbreaking Choice: support for diagnosis or termination for medical reasons. http://www.Epiclisteartbreakingchoice.com/ [facility]: ending a for a abnormality http://www.healthtalkonline.org/Pregnancy_children/Ending_a_pregnancy_for_fetal_ abnormality Ending a Wanted : support for patients and families ending a after or maternal medical diagnosis https://endingawantedpregnancy.Living Independently Group Vinh Freire: one person's story about loss and collected resources. http://www.ServiceGems Pili Gift: headquarters in [place] but with online support group https://www.SEAT 4a/agzkkq-xiil-ncwkyhk-groups.html LOCAL RESOURCES Love Lives On, [facility] https://my.[facility].org/locations/[facility]/guest-services/suppo rt Patricia(Families Experiencing Early Loss) [facility] https://consultqd.[facility].org/lhclaqdvp-jdnzugsnz-grbnboblqnu-program-martin evffdo-cbikzbba-egeweokd/ [facility] - counseling services [phone] or toll free at [phone] [facility] Support Groups (not specific to loss) https://my.[facility].org/patients/information/bereavement/support-groups [facility] Counselors with experience with families facing the loss of a baby before . This service may be covered by your insurance. If not, [facility] will not turn anyone away because of inability to pay. or [phone] Cole Lanza, local counselor, not associated with [facility] [phone] Some of our families have recommended Cole Lanza as he specializes in helping families who have had or are facing a loss. This may be covered by your insurance, if not, a sliding scale payment plan is available. BOOKS Our Heartbreaking Choices: Forty-Six Women Share Their Stories of Interrupting a Much-Wanted , By Rossy Hunter Sorrow: Loss-Guidance and Support for You and Your Family, By Janelle Clement and Nathaniel Hill Unspeakable Losses: Healing from Miscarriage, , and other Loss, By Ivis Barnett Empty Cradle, Broken Heart: Surviving the of your Baby, By Sharon Jim Empty Arms: Coping with Miscarriage, Stillbirth, and Infant , By Ranjan Mane I Love You Still: A Memorial Baby Book, By Coleen Hardy Understanding Your Grief: Ten Essential Touchstones for Finding Hope and Healing Your Heart, By Nikunj Freedman BOOKS FOR CHILDREN We Were Gonna Have a Baby, But We had an Panfilo Instead, By Romy Clemente My Sibling Still, By Sabine Anthony The Goodbye Book, By Damian Dooley Something Happened, By Cookie Sweeney No New Baby, By Ekta Howard The Invisible String, By Aníbal Baig Our Baby , by Randi Yoder (two books, one for surgical termination and one for induction of labor) documented in this encounterWadsworth[facility]04-04-[facility] History of Present illness Narrative* Meka Smith MD - 07/29/2022 11:21 AM EDT Pre Procedure Assessment: Aliyah Dang is a 37 year old here for an HAYDEE procedure. Patient's last menstrual period was Patient's last menstrual period was 05/16/2022 (exact date). (approximate). Reason for procedure: Incomplete Anxiolytic Checklist Has ride home? Yes Current use of prescribed or non-prescribed opioids or benzos: No Medications: Provided by office:Toradol 60 mg IM Blood Type: A+ Hemoglobin: Hemoglobin Date Value Ref Range Status 07/14/2022 12.5 11.5 - 15.5 g/dL Final Rhophylac Administered:No Procedure end time: 1208 pm Post Procedure Assessment: Time of first post-procedure assessment: 1210 pm Vitals: BP 122/88 HR 75 SpO2 99% RR 12 Bleeding:Light Pain ratin Time of second post-procedure assessment: 1227 pm Vitals: BP 120/80 HR 78 SpO2 98 % RR 12 Bleeding:Moderate Pain Ratin Constance Palomino RN UNIVERSAL PROTOCOL / SAFETY CHECKLIST Procedure to be Performed: IPAS Brief TVUS done, still w/ some debris in uterus, heterogenous 2.6x 3 x 1.8 cm. Sign In: A Moment of CARE was completed. Personnel directly involved with the procedure wore the appropriate PPE (Personal Protective Equipment). Patient/Surrogate Stated/Verified: PATIENT VERIFIED(optional for EMERGENT procedures): Patient name, Date of , Relevant allergies, and The intended procedure Time Out Communication: Intended patient and procedure match the source documents. Consent documented and matches the intended procedure. Relevant labs, photos, and/or imaging studies have been reviewed. No implant(s) inserted. Sign Out: SIGN OUT (optional for EMERGENT procedures): All specimen containers correctly labeled. All instruments, equipment, possible retained foreign bodies accounted for. Post-procedure follow-up management communicated and Plan of Care Visit completed when applicable. Meka Smith M.D. Procedure note: Speculum was placed in the vagina. After prepping the cervix with betadine paracervical block was performed using 10cc of 0.5% lidocaine with 1:100,000 epi. Cervix was grasped with single tooth tenaculum. Cervix was dilated. Using sterile technique, the Manual Vacuum Aspiration device with size 6 cannula was inserted into the uterus and contents were evacuated. Post-procedure ultrasound confirmedno retained tissue. Post-procedure vital signs were obtained and stable Specimen was sent to pathology Patient tolerated procedure well. PLAN: Patient was advised to observe for signs and symptoms of infection including but not limited to fever, malodorous vaginal discharge and/or pain. Bleeding expectations were reviewed. Follow up: in 1-2 weeks or prn Meka Smith MD documented in this encounterWadsworth-[facility]04-04-[facility]23 History of Present illness Narrative* Constance Palomino RN - 07/29/2022 10:17 AM EDT Please file pended CAM order for patients procedure today. Constance Palomino RN documented in this encounterWadsworth-[facility]03-29-2023 NoteHNO ID: [id number] Author: Meka Smith MD Service: ? Author Type: Physician Type: Progress Notes Filed: 07/23/2022 3:59 PM Note Text: Aliyah Dang is a 37 year old female who presents for problem visit for f/u miscarriage. . HPI: 37 YOF w/ 7week missed ab last week elected for cytotec at home. Used 07/18 and that night overnight had bleeding and cramping. It was piston maker then started increasing again last 2 days. Today light. No lightheadedness or fever or other concerns. 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 PAST MEDICAL HISTORY Diagnosis Date NEGATIVE MEDICAL HISTORY PAST SURGICAL HISTORY Procedure Laterality Date APPENDECTOMY FAMILY HISTORY Problem Relation Age of Onset Hypertension Mother Lipids Mother Depression Mother other (accidental ) Father work accident No Known Problems Sister Diabetes Maternal Grandmother Hypertension Maternal Grandmother Aneurysm Maternal Grandfather Heart Maternal Grandfather Dementia Paternal Grandmother Emphysema Paternal Grandfather Social History Tobacco Use Smoking status: Never Smokeless tobacco: Never Vaping Use Vaping Use: Never used Substance Use Topics Alcohol use: Not Currently Comment: socially Drug use: No Current Outpatient Medications Medication Sig prental multivitamin 27 mg iron- 800 mcg tablet Take 1 tablet by mouth once daily. L.acid/B.animalis,bifidum/FOS (PROBIOTIC COMPLEX ORAL) Take by mouth. No current facility-administered medications for this visit. Allergies As of Date: 07/23/2022 (No Known Allergies) Fully Assessed 07/23/2022 Allergies and current medication updated:Yes EXAM: LMP 05/16/2022 GENERAL: pleasant, female in no apparent distress PELVIC: external genitalia normal, normal Bartholin's glands, urethra, Altavista's glands, no vulvar lesions, no cervical lesions, good vaginal support, physiologic discharge present, normal appearing perineal body and perianal region, cervix closed, small amount of pink tinged mucous at os BIMANUAL: uterus normal size, shape and consistency, no adnexal masses, and non-tender TVUS done- heterogeneous debris in lower uterine segment. No discrete getstational sac or embryo noted. ASSESSMENT AND PLAN: incomplete SAB. D/ wher options- medical, expectant or surgical management. Elects for in office IPAS. Will premedicate w/ toradol, tylenol and give doxy. D/w her may pass over the weekend as does not want to miss more work. Scheduled for next week. If other concerns, heavy bleeding in interim notify office. RH +. CBC reviewed Medical Decision Making: Problems: Moderate: New problem with uncertain prognosis Data: Unique test result(s) reviewed: 2 Risk: Moderate: Moderate risk from testing/treatment Medical Decision Making Level: 4 - Moderate Meka Smith [facility]03-29-2023 History of Present illness Narrative* Meka Smith MD - 07/23/2022 3:18 PM EDT Aliyah Dang is a 37 year old female who presents for problem visit for f/u miscarriage. . HPI: 37 YOF w/ 7week missed ab last week elected for cytotec at home. Used 07/18 and that night overnight had bleeding and cramping. It was piston maker then started increasing again last 2 days. Today light. No lightheadedness or fever or other concerns. 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 PAST MEDICAL HISTORY Diagnosis Date NEGATIVE MEDICAL HISTORY PAST SURGICAL HISTORY Procedure Laterality Date APPENDECTOMY FAMILY HISTORY Problem Relation Age of Onset Hypertension Mother Lipids Mother Depression Mother other (accidental ) Father work accident No Known Problems Sister Diabetes Maternal Grandmother Hypertension Maternal Grandmother Aneurysm Maternal Grandfather Heart Maternal Grandfather Dementia Paternal Grandmother Emphysema Paternal Grandfather Social History Tobacco Use Smoking status: Never Smokeless tobacco: Never Vaping Use Vaping Use: Never used Substance Use Topics Alcohol use: Not Currently Comment: socially Drug use: No Current Outpatient Medications Medication Sig prental multivitamin 27 mg iron- 800 mcg tablet Take 1 tablet by mouth once daily. L.acid/B.animalis,bifidum/FOS (PROBIOTIC COMPLEX ORAL) Take by mouth. No current facility-administered medications for this visit. Allergies As of Date: 07/23/2022 (No Known Allergies) Fully Assessed 07/23/2022 Allergies and current medication updated:Yes EXAM: LMP 05/16/2022 GENERAL: pleasant, female in no apparent distress PELVIC: external genitalia normal, normal Bartholin's glands, urethra, Altavista's glands, no vulvar lesions, no cervical lesions, good vaginal support, physiologic discharge present, normal appearing perineal body and perianal region, cervix closed, small amount of pink tinged mucous at os BIMANUAL: uterus normal size, shape and consistency, no adnexal masses, and non-tender TVUS done- heterogeneous debris in lower uterine segment. No discrete getstational sac or embryo noted. ASSESSMENT AND PLAN: incomplete SAB. D/ wher options- medical, expectant or surgical management. Elects for in office IPAS. Will premedicate w/ toradol, tylenol and give doxy. D/w her may pass over the weekend as does not want to miss more work. Scheduled for next week. If other concerns, heavy bleeding in interim notify office. RH +. CBC reviewed Medical Decision Making: Problems: Moderate: New problem with uncertain prognosis Data: Unique test result(s) reviewed: 2 Risk: Moderate: Moderate risk from testing/treatment Medical Decision Making Level: 4 - Moderate Meka Smith MD documented in this encounterWadsworth-[facility]03-21-[facility]23 Miscellaneous Notes* Telephone Encounter - Jenny Perez RN - 07/15/2022 11:14 AM EDT See 07/14/22 [employer] message. Patient chose cytotec. Jenny Perez RN * Telephone Encounter - Getachew Franklin MD - 07/14/2022 5:00 PM EDT Patient diagnosed with a missed at 7 weeks 2 days on July 14, 2022. Patient will be calling the office to let us know how she plans to proceed either expectant management versus medical management with Cytotec versus surgical intervention. Please keep this note open so we can make sure that she gets followed up. documented in this encounterWadsworth-[facility]man [facility]03-21-2023 Miscellaneous Notes* Telephone Encounter - Jenny Perez RN - 07/15/2022 10:13 AM EDT Left message for patient to call office. Mychart message also sent. Jenny Perez RN * Telephone Encounter - Getachew Franklin MD - 07/15/2022 8:36 AM EDT Please call the patient and instruct her on proper use. We briefly discussed it yesterday. I would recommend that she put the 4 tablets on the top of a tampon- meaning pull back the tampon a little bit but the pills on the tampon insert the tampon so that way the tablets go all the way to the back of the vagina. Do not use any lubricating gel as that will stop the pills from breaking down she can put a tiny bit of water on the tip if she needs to. Keep the tampon in until she starts to actively bleed. At that point changed to pads so she can monitor how much bleeding she is having. She can take ibuprofen 600 mg every 6 hours and Tylenol 1000 mg every 6 hours interchange them for any discomfort. Please review bleeding precautions and when to go to the ER or to the office if to heavy of bleeding. She is Rh+ does not need RhoGAM. She needs to follow-up in the office approximately 3 days after she takes the Cytotec. documented in this encounterWadsworth-[facility]03-20-2023 NoteHNO ID: [id number] Author: Getachew Franklin MD Service: ? Author Type: Physician Type: Progress Notes Filed: 07/14/2022 5:00 PM Note Text: Environmental Aid offered: Patient declines. INITIAL OB ASSESSMENT OB Provider: Getachew Franklin MD HPI: Aliyah Dang is a 37 year old female here to establish Obstetrical Care. Patient's last menstrual period was 05/16/2022 (exact date). from OB Dating Form. Cycle length: 28 days Complaints: nausea and vomiting (occasional) was planned. OB History T0 L0 SAB0 IAB0 Ectopic0 Multiple0 Live Births0 Prior : never History of 4th degree laceration: No Patient's Risk Screening for delivery: History of abnormal pap: No Prior treatment for cervical dysplasia: none. History of STDs: None Tobacco use: No Caffeine use: No Drug use: No Alcohol use: No Multivitamin with Folic acid: Yes Occupation: [employer] Gnosticism or [place] heritage: No Would refuse blood transfusion if medically necessary: No BMI 31.03 kg/(m2) Patient BMI over 30? Yes Marital Status: Partner: Name: juany Age: 37 Occupation: [employer] Gender: male History of STDs: None PAST MEDICAL HISTORY Diagnosis Date NEGATIVE MEDICAL HISTORY PAST SURGICAL HISTORY Procedure Laterality Date APPENDECTOMY Current Outpatient Medications on File Prior to Visit Medication Sig prental multivitamin 27 mg iron- 800 mcg tablet Take 1 tablet by mouth once daily. L.acid/B.animalis,bifidum/FOS (PROBIOTIC COMPLEX ORAL) Take by mouth. No current facility-administered medications on file prior to visit. Review of Systems: GENERAL: Negative for: Fever or Chills HEENT: Negative for: Headache, Impaired Vision, Ringing in Ears, Nosebleeds NECK: Negative for: Swelling, Pain, Stiffness RESPIRATORY: Negative for: Cough, Shortness of breath, Wheezing GASTROINTESTINAL: Negative for: Heartburn, Constipation, Diarrhea, Blood in stool, Vomiting MUSCULOSKELETAL: Negative for: Muscle or joint pain, stiffness, Joint swelling NEUROLOGIC/PSYCHIATRIC: Negative for: Weakness, Paralysis, Numbness, Tingling, Tremor, Anxiety, Depression, Memory loss SKIN: Negative for: Rash, Itching GENITOURINARY: Negative for: vaginal itching, vaginal discharge, hematuria or dysuria PHYSICAL EXAM: BP 110/70 Ht 5' 4 (1.63m) Wt 180 lb 12.8 oz (82.0kg) LMP 05/16/2022 BMI 31.02 kg/(m2). GENERAL: pleasant female in no apparent distress DERMATOLOGY: Normal, without lesions, non-icteric, and non-hirsute NECK: Supple, full range of motion, no adenopathy, and thyroid normal BREAST: soft, non-tender, symmetric, no dominant mass, normal nipple-areolar complex, no lymphadenopathy, and no nipple discharge ABDOMEN: soft, non-tender, and no masses NEURO: alert and oriented x3,exam grossly non-focal PELVIS: External genitalia normal without lesions. Perineal body intact. Clinical Pelvimetry: not performed Limited OB ultrasound exam: single intrauterine and MISSED ab- no FHR confirmed by myself and Viticulture Teacher Chester Seo. OB Risk Screening: Completed, positive findings include: Patient will be less than 17 or greater than 34 at the time of Delivery Patient answered 'Yes' to previous baby with a GBS Infection Patient answered 'Yes' to Partner with Herpes SBIRT Aliyah Dang was given the 4P's screening tool. Aliyah answered as follows: OB Opioid Screening - Last Recorded (since 10/17/2021) Did any of your parents have a problem with alcohol or other drug use? Yes father-ETOH Does your partner have a problem with alcohol or other drug use? No In the past, have you had difficulties in your life because of alcohol or other drugs, including prescription medications? No In the past month have you drunk any alcohol or used other drugs? No Are you taking medication for pain during the either prescribed or not? No Based on the screen and further questions, she is considered at Low risk due to:No past or current use. Positive reinforcement of current behavior. Plan to rescreen early third trimester. Getachew Brown MD ASSESSMENT: 37 year old at 7.2 wks gestational age- MISSED AB PLAN: 1) will get CBC and TANDS today 2) all options were reviewed with the patient and her including expectant management versus medical management with Cytotec versus surgical intervention. Patient would like time to think about it and will notify the office when decision is made. We did discuss the risk and benefits of each. We did discuss bleeding precautions. 3) emotional support given- pt doing well. [facility]Sum[facility] History of Present illness Narrative* Getachew Franklin MD - 07/14/2022 3:15 PM EDT Images from the original note were not included. Environmental Aid offered: Patient declines. INITIAL OB ASSESSMENT OB Provider: Getachew Franklin MD HPI: Aliyah Dang is a 37 year old female here to establish Obstetrical Care. Patient's last menstrual period was 05/16/2022 (exact date). from OB Dating Form. Cycle length: 28 days Complaints: nausea and vomiting (occasional) was planned. OB History T0 L0 SAB0 IAB0 Ectopic0 Multiple0 Live Births0 Prior : never History of 4th degree laceration: No Patient's Risk Screening for delivery: History of abnormal pap: No Prior treatment for cervical dysplasia: none. History of STDs: None Tobacco use: No Caffeine use: No Drug use: No Alcohol use: No Multivitamin with Folic acid: Yes Occupation: [employer] or [employer] heritage: No Would refuse blood transfusion if medically necessary: No BMI 31.03 kg/(m^2) Patient BMI over 30? Yes Marital Status: Partner: Name: juany Age: 37 Occupation: [employer] Gender: male History of STDs: None PAST MEDICAL HISTORY Diagnosis Date NEGATIVE MEDICAL HISTORY PAST SURGICAL HISTORY Procedure Laterality Date APPENDECTOMY Current Outpatient Medications on File Prior to Visit Medication Sig prental multivitamin 27 mg iron- 800 mcg tablet Take 1 tablet by mouth once daily. L.acid/B.animalis,bifidum/FOS (PROBIOTIC COMPLEX ORAL) Take by mouth. No current facility-administered medications on file prior to visit. Review of Systems: GENERAL: Negative for: Fever or Chills HEENT: Negative for: Headache, Impaired Vision, Ringing in Ears, Nosebleeds NECK: Negative for: Swelling, Pain, Stiffness RESPIRATORY: Negative for: Cough, Shortness of breath, Wheezing GASTROINTESTINAL: Negative for: Heartburn, Constipation, Diarrhea, Blood in stool, Vomiting MUSCULOSKELETAL: Negative for: Muscle or joint pain, stiffness, Joint swelling NEUROLOGIC/PSYCHIATRIC: Negative for: Weakness, Paralysis, Numbness, Tingling, Tremor, Anxiety, Depression, Memory loss SKIN: Negative for: Rash, Itching GENITOURINARY: Negative for: vaginal itching, vaginal discharge, hematuria or dysuria PHYSICAL EXAM: BP 110/70 Ht 5' 4 (1.63m) Wt 180 lb 12.8 oz (82.0kg) LMP 05/16/2022 BMI 31.02 kg/(m^2). GENERAL: pleasant female in no apparent distress DERMATOLOGY: Normal, without lesions, non-icteric, and non-hirsute NECK: Supple, full range of motion, no adenopathy, and thyroid normal BREAST: soft, non-tender, symmetric, no dominant mass, normal nipple-areolar complex, no lymphadenopathy, and no nipple discharge ABDOMEN: soft, non-tender, and no masses NEURO: alert and oriented x3,exam grossly non-focal PELVIS: External genitalia normal without lesions. Perineal body intact. Clinical Pelvimetry: not performed Limited OB ultrasound exam: single intrauterine and MISSED ab- no FHR confirmed by myselfand Viticulture Teacher Chester Seo. OB Risk Screening: Completed, positive findings include: Patient will be less than 17 or greater than 34 at the time of Delivery Patient answered 'Yes' to previous baby with a GBS Infection Patient answered 'Yes' to Partner with Herpes [facility] Aliyah Dang was given the 's screening tool. Aliyah answered as follows: OB Opioid Screening - Last Recorded (since 10/17/2021) Did any of your parents have a problem with alcohol or other drug use? Yes father-ETOH Does your partner have a problem with alcohol or other drug use? No In the past, have you had difficulties in your life because of alcohol or other drugs, including prescription medications? No In the past month have you drunk any alcohol or used other drugs? No Are you taking medication for pain during the either prescribed or not? No Based on the screen and further questions, she is considered at Low risk due to:No past or current use. Positive reinforcement of current behavior. Plan to rescreen early third trimester. Getachew Brown MD ASSESSMENT: 37 year old at 7.2 wks gestational age- MISSED AB PLAN: 1) will get CBC and T&S today 2) all options were reviewed with the patient and her including expectant management versusmedical management with Cytotec versus surgical intervention. Patient would like time to think about it and will notify the office when decision is made. We did discuss the risk and benefits of each.We did discuss bleeding precautions. 3) emotional support given- pt doing well. Getachew Brown MD documented in this encounterW[facility]03-[facility] Instructions* Patient Instructions* Nya Irene MA - 07/14/2022 3:15 PM EDT Please select the following link to access the [facility] Your Guide to a Healthy . [email or web address] documented in this encounterWadsworth-Rittman [facility]03-16-2023 Miscellaneous Notes* Quick Notes - Maine Foster RN - 07/10/2022 8:34 AM EDT DISTANCE HEALTH VISIT This Team Access Model visit is a phone encounter. It required patient-provider interaction for themedical decision making as documented below. Aliyah Dang is a 37 year old female seen for PNOB. Advanced maternal age discussed. Noninvasive and invasive testing options discussed. Patient considering aneuploidy screening. Contact information for [employer] genetics given to patient to check on insurance coverage. Patient considering genetic carrier screening testing. Contact information for [facility] given to patient to check on insurance coverage. Father of the baby's nephew was a twin that was delivered prematurely. Born with heart defect. Surgical correction in future.Maine Foster RN documented in this encounterWadsworth-[facility]man [facility]11-29-2022 History of Present illness Narrative* Stormy Barajas APRN.JULIA - 03/25/2022 3:51 PM EST Aliyah presents for removal of IUD due to desire for . UNIVERSAL PROTOCOL / SAFETY CHECKLIST Procedure to be Performed: Mirena removal Sign In: A Moment of CARE was completed. Personnel directly involved with the procedure wore the appropriate PPE (Personal Protective Equipment). Patient/Surrogate Stated/Verified: PATIENT VERIFIED(optional for EMERGENT procedures): Patient name, Date of , Relevant allergies, and The intended procedure Time Out Communication: Intended patient and procedure match the source documents. Consent documented and matches the intended procedure. Sign Out: SIGN OUT (optional for EMERGENT procedures): No specimen collected. All instruments, equipment, possible retained foreign bodies accounted for. Angelita Peoples RN PROCEDURE: Speculum placed in vagina, IUD string visualized and grasped with ring forceps. ASSESSMENT/PLAN: IUD removed without difficulty, intact, and patient tolerated procedure well. Contraception plans: none Reviewed pre-conception guidelines including folic acid supplementation, optimal timing of intercourse, avoidance of smoking, alcohol, exposure to environmental chemicals and need for evaluation if not within 12 months. Stormy Barajas APRN.CNP documented in this encounterWadsworth-[facility]man [facility]11-11-2022 History of Present illness Narrative* Stormy Barajas APRN.CNP - 03/07/2022 7:22 AM EST Aliyah is a 36 year old who presents for an annual gynecologic exam without complaints. Menses: cycles every 25-30 days and 3-4 days of flow. Contraception: IUD HPV vaccine: No Last Pap: 08/19/2016 normal HPV: 08/15/2016 negative History of abnormal pap: No Last mammogram: never Sexually active: Yes Pain with intercourse: No Postcoital bleeding: No OB History T0 L0 SAB0 IAB0 Ectopic0 Multiple0 Live Births0 [employer] History LMP: 02/23/2022 (Exact Date), IUD Age at Menarche: Age at First : Age at Menopause: [employer] History Comments: Sexual Activity: Yes; Male Contraception: Condom, I.U.D. PAST MEDICAL HISTORY Diagnosis Date NEGATIVE MEDICAL HISTORY PAST SURGICAL HISTORY Procedure Laterality Date APPENDECTOMY FAMILY HISTORY Problem Relation Age of Onset Hypertension Mother Lipids Mother other (accidental ) Father work accident Diabetes Maternal Grandmother Hypertension Maternal Grandmother SOCIAL HISTORY Social History Tobacco Use Smoking status: Never Smokeless tobacco: Never Vaping Use Vaping Use: Never used Substance Use Topics Alcohol use: Yes Comment: socially Drug use: No REVIEW OF SYSTEMS Abdomen: No abdominal pain, nausea, vomiting, diarrhea, or constipation. No bloating, early satiety, indigestion, or increased flatulence. Bladder: No dysuria, gross hematuria, urinary frequency, urinary urgency, or incontinence. Breast: No breast lumps, nipple d/c, overlying skin changes, redness or skin retraction. Allergies and current medication updated:Yes EXAM: Ht 5' 3.25 (1.61m) Wt 175 lb (79.4kg) LMP 02/23/2022 BMI 30.74 kg/(m^2). GENERAL: pleasant, female in no apparent distress HEENT: Normocephalic, atraumatic, and no lesions NECK: Supple, full range of motion, no adenopathy, and thyroid normal DERMATOLOGY: Normal, without lesions, non-icteric, and non-hirsute BREAST: soft, non-tender, symmetric, no dominant mass, normal nipple-areolar complex, no lymphadenopathy, and no nipple discharge CHEST: Normal inspiratory effort ABDOMEN: soft, non-tender, and no masses PELVIC: external genitalia normal, normal Bartholin's glands, urethra, [place]'s glands, no vulvar lesions, no cervical lesions, good vaginal support, physiologic discharge present, normal appearing perineal body and perianal region, IUD string seen BIMANUAL: uterus normal size, shape and consistency, no adnexal masses, and non-tender RECTOVAGINAL: deferred. NEURO: alert and oriented x3,exam grossly non-focal EXTREMITIES: normal ASSESSMENT/PLAN: 1) Health maintenance: Pap done with HPV. Mammogram starting age 40. Nutrition, exercise and routine health maintenance exams reviewed. Calcium/Vitamin D supplementation information provided. 2) Contraception: IUD. Contraceptive options reviewed and information provided. 3) STD screening: Declined STD check. 4) Follow up one year or sooner as needed 5) IUD removal order place, recommended start a PNV Stormy Barajas APRN.CNP documented in this encounterWadsworth-[facility] HospitalEvalunemours foundation note* Diagnosis Encounter for gynecological examination (general) (routine) without abnormal findings- Primary Screening for cervical cancer Screening for malignant neoplasm of the cervix Encounter for screening for human papillomavirus (HPV) Special screening examination for human papillomavirus (HPV) Encounter for IUD removal Encounter for removal of intrauterine contraceptive device [facility]* Diagnosis Encounter for IUD removal- Primary Encounter for removal of intrauterine contraceptive device [facility]* Diagnosis Advanced maternal age, primigravida, antepartum- Primary Elderly primigravida, antepartum [facility] encounter [facility]* Diagnosis Missed - Primary documented in this encounter [facility]* Diagnosis Missed - Primary documented in this encounter [facility] note* Diagnosis Incomplete spontaneous without complication- Primary Incomplete spontaneous without mention of complication documented in this encounter [facility] note* Diagnosis Incomplete spontaneous without complication- Primary Incomplete spontaneous without mention of complication [facility]* Diagnosis Postop check- Primary Follow-up examination, following unspecified surgery documented in this encounter [facility] note* Diagnosis Encounter for supervision of other normal in first trimester- Primary 8 weeks gestation of state, incidental [facility] encounter [facility]* Diagnosis , location unknown- Primary state, incidental with uncertain viability, single or unspecified fetus documented in this encounter [facility] note* Diagnosis 12 weeks gestation of - Primary state, incidental Encounter for supervision of other normal in first trimester AMA (advanced maternal age) multigravida 35+, first trimester Need for influenza vaccination Need for prophylactic vaccination and inoculation against influenza documented in this encounter [facility] note* Diagnosis Encounter for (NT) nuchal translucency scan- Primary Other specified screening Encounter for supervision of other normal in first trimester 12 weeks gestation of state, incidental [facility] encounter [facility]* Diagnosis 17 weeks gestation of - Primary state, incidental Encounter for supervision of other normal in second trimester [facility] encounter [facility]* Diagnosis Multigravida of advanced maternal age in second trimester- Primary 19 weeks gestation of state, incidental documented in this encounter [facility] note* Diagnosis Encounter for anatomic survey- Primary Encounter for supervision of other normal in first trimester AMA (advanced maternal age) multigravida 35+, first trimester 19 weeks gestation of state, incidental documented in this encounter [facility] note* Diagnosis Encounter for ultrasound to check growth- Primary Encounter for routine screening for malformation using ultrasonics Advanced maternal age, primigravida, antepartum Elderly primigravida, antepartum Abnormal glucose complicating Abnormal maternal glucose tolerance, complicating , childbirth, or the puerperium, unspecified as to episode of care 31 weeks gestation of state, incidental documented in this encounter [facility]* Diagnosis 31 weeks gestation of - Primary state, incidental Need for vaccination Need for prophylactic vaccination and inoculation against unspecified single disease documented in this encounter [facility] for referral (narrative)* Outpatient Procedure (Routine) - Pending Review Specialty Diagnoses / Procedures Referred By Elke fernandez Referred To Contact [facility] Diagnoses Encounter for IUD removal Procedures REMOVE INTRAUTERINE DEVICE REMOVE INTRAUTERINE DEVICE Stormy Barajas APRN.CNP [address] [place] [address] [place] [id number] [place] [id number] Referral ID Status Reason Start Date Expiration Date Visits Requested Visits Authorized [id number] Pending Review Auto-Generat ed Referral 2 03/07/2023 1 [facility] Outpatient Procedure (Routine) - Pending Review Specialty Diagnoses / Procedures Referred By Elke fernandez Referred To Contact [facility] Diagnoses Encounter for IUD removal Procedures REMOVE INTRAUTERINE DEVICE REMOVE INTRAUTERINE DEVICE Stormy Barajas APRN.CNP [address] [place] [address] [address] Referral ID Status Reason Start Date Expiration Date Visits Requested Visits Authorized [id number] Pending Review Auto-Generat ed Referral 2 03/25/2023 1 1 [facility] Diagnostic Procedure Only (Routine) - Authorized Specialty Diagnoses / Procedures Referred By Elke fernandez Referred To Contact [facility] Diagnoses Encounter for supervision of other normal in first trimester 8 weeks gestation of Procedures NUCHAL TRANSLUCENCY WHI US NUCHAL TRANSLUCENCY 1ST GESTATION Stormy Barajas APRN.CNP [address] [place] [address] [address] Referral ID Status Reason Start Date Expiration Date Visits Requested Visits Authorized [id number] Authorized Auto-Generat ed Referral 01/05/2023 01/05/2024 1 1 [facility] (narrative)* Diagnostic Procedure Only (Routine) - Authorized Specialty Diagnoses / Procedures Referred By Elke fernandez Referred To Contact [facility] Diagnoses 12 weeks gestation of Encounter for supervision of other normal in first trimester AMA (advanced maternal age) multigravida 35+, first trimester Procedures OBSTETRIC ULTRASOUND WHI US PREG UTERUS AFTER 1ST TRIMEST GESTATION Meka Smith MD [address] [place] [address] [address] Referral ID Status Reason Start Date Expiration Date Visits Requested Visits Authorized [id number] Authorized Auto-Generat ed Referral 02/02/2023 02/02/2024 1 1 [facility] Medications Administered Section Inactive Administered Medications - up to 3 most recent administrations Medication Order MAR Action Action Date Dose Rate Site keTORolac 60 mg injection (Toradol) 60 mg, INTRAMUSCULAR, ONCE, 1 dose, On Thu07/29/22 at 1200, Ketorolac (Toradol) is indicated for the short-term (up to 5 days) management of moderately severe acute pain. Continuation of ketorolac (Toradol) beyond 5 days increases the risk of developing serious adverse events. Please verify the duration of therapy for ketorolac (Toradol)., If ordered PRN for pain, patient/guardian may elect to receive this medication for higher pain levels INSTEAD of the opioid, if preferred: Yes Given 07/29/2022 11:30 AM EDT 60 mg Buttocks, Right Health Concerns Problem Noted Date Diagnosed Date [facility] - [facility] 01/05/2023 [facility] - [place] 01/05/2023 Problem Noted Date Diagnosed Date [facility] - [facility] 01/05/2023 [facility] - [place] 01/05/2023 Problem Noted Date Diagnosed Date [facility] - [facility] 01/05/2023 Education - [place] 01/05/2023 Problem Noted Date Diagnosed Date [facility] - [facility] 01/05/2023 Education - [place] 01/05/2023 Problem Noted Date Diagnosed Date [facility] - [facility] 01/05/2023 Education - [place] 01/05/2023 Problem Noted Date Diagnosed Date [facility] - [facility] 01/05/2023 Education - [place] 01/05/2023 Problem Noted Date Diagnosed Date [facility] - [facility] 01/05/2023 Education - [place] 01/05/2023 Problem Noted Date Diagnosed Date [facility] - [facility] 01/05/2023 [facility] - [place] 01/05/2023 Summary Purpose Family History No Family History Records Found Advance Directives No Advanced Directives Records Found Additional Source Comments Source Comments (unrecognize d section and content) In the event this informatio n is protected by the Federal Confidentiality of Alcohol and Drug Abuse Patient Records regulations: The Federal rules restrict any use of the information to criminally investigate or prosecute any alcohol or drug abuse patient.[facility] HospitalIn the event this information is protected by the Federal Confidentiality of Alcohol and Drug Abuse Patient Records regulations: The Federal rules restrict any use of the information to criminally investigate or prosecute any alcohol or drug abuse patient.[facility] HospitalIn the event this information is protected by the Federal Confidentiality of Alcohol and Drug Abuse Patient Records regulations: The Federal rules restrict any use of the information to criminally investigate or prosecute any alcohol or drug abuse patient.[facility] HospitalIn the event this information is protected by the Federal Confidentiality of Alcohol and Drug Abuse Patient Records regulations: The Federal rules restrict any use of the information to criminally investigate or prosecute any alcohol or drug abuse patient.[facility] HospitalIn the event this information is protected by the Federal Confidentiality of Alcohol and Drug Abuse Patient Records regulations: The Federal rules restrict any use of the information to criminally investigate or prosecute any alcohol or drug abuse patient.[facility] HospitalIn the event this information is protected by the Federal Confidentiality of Alcohol and Drug Abuse Patient Records regulations: The Federal rules restrict any use of the information to criminally investigate or prosecute any alcohol or drug abuse patient.[facility] HospitalIn the event this information is protected by the Federal Confidentiality of Alcohol and Drug Abuse Patient Records regulations: The Federal rules restrict any use of the information to criminally investigate or prosecute any alcohol or drug abuse patient.[facility] HospitalIn the event this information is protected by the Federal Confidentiality of Alcohol and Drug Abuse Patient Records regulations: The Federal rules restrict any use of the information to criminally investigate or prosecute any alcohol or drug abuse patient.[facility] HospitalIn the event this information is protected by the Federal Confidentiality of Alcohol and Drug Abuse Patient Records regulations: The Federal rules restrict any use of the information to criminally investigate or prosecute any alcohol or drug abuse patient.[facility] HospitalIn the event this information is protected by the Federal Confidentiality of Alcohol and Drug Abuse Patient Records regulations: The Federal rules restrict any use of the information to criminally investigate or prosecute any alcohol or drug abuse patient.[facility] HospitalIn the event this information is protected by the Federal Confidentiality of Alcohol and Drug Abuse Patient Records regulations: The Federal rules restrict any use of the information to criminally investigate or prosecute any alcohol or drug abuse patient.[facility] HospitalIn the event this information is protected by the Federal Confidentiality of Alcohol and Drug Abuse Patient Records regulations: The Federal rules restrict any use of the information to criminally investigate or prosecute any alcohol or drug abuse patient.[facility] HospitalIn the event this information is protected by the Federal Confidentiality of Alcohol and Drug Abuse Patient Records regulations: The Federal rules restrict any use of the information to criminally investigate or prosecute any alcohol or drug abuse patient.[facility] HospitalIn the event this information is protected by the Federal Confidentiality of Alcohol and Drug Abuse Patient Records regulations: The Federal rules restrict any use of the information to criminally investigate or prosecute any alcohol or drug abuse patient.[facility] HospitalIn the event this information is protected by the Federal Confidentiality of Alcohol and Drug Abuse Patient Records regulations: The Federal rules restrict any use of the information to criminally investigate or prosecute any alcohol or drug abuse patient.[facility] HospitalIn the event this information is protected by the Federal Confidentiality of Alcohol and Drug Abuse Patient Records regulations: The Federal rules restrict any use of the information to criminally investigate or prosecute any alcohol or drug abuse patient.[facility] HospitalIn the event this information is protected by the Federal Confidentiality of Alcohol and Drug Abuse Patient Records regulations: The Federal rules restrict any use of the information to criminally investigate or prosecute any alcohol or drug abuse patient.[facility] HospitalIn the event this information is protected by the Federal Confidentiality of Alcohol and Drug Abuse Patient Records regulations: The Federal rules restrict any use of the information to criminally investigate or prosecute any alcohol or drug abuse patient.[facility] HospitalIn the event this information is protected by the Federal Confidentiality of Alcohol and Drug Abuse Patient Records regulations: The Federal rules restrict any use of the information to criminally investigate or prosecute any alcohol or drug abuse patient.[facility] HospitalIn the event this information is protected by the Federal Confidentiality of Alcohol and Drug Abuse Patient Records regulations: The Federal rules restrict any use of the information to criminally investigate or prosecute any alcohol or drug abuse patient.[facility] HospitalIn the event this information is protected by the Federal Confidentiality of Alcohol and Drug Abuse Patient Records regulations: The Federal rules restrict any use of the information to criminally investigate or prosecute any alcohol or drug abuse patient.[facility] Reason for Visit (unrecogniz ed section and content) Specialty Diagnoses / Procedures Referred By Elke fernandez Referred To Contact [facility] Diagnoses Encounter for supervision of other normal in first trimester 8 weeks gestation of Procedures NUCHAL TRANSLUCENCY WHI US NUCHAL TRANSLUCENCY 1ST GESTATION Stormy Barajas, CHRISSY[employer]CHNOLOGIST [address] [place] [address] [facility] [address] [place] [address] Referral ID Status Reason Start Date Expiration Date V isits Requested Visits Authorized [id number] Closed Auto-Generate d Referral 01/05/2023 01/05/2024 1 1 Reason Comments Yearly Exam Reason Onset Date Comments IUD Removal IUD Removal 03/25/2022 Specialty Diagnoses / Procedures Referred By Elke fernandez Referred To Contact [facility] Diagnoses Encounter for IUD removal Procedures REMOVE INTRAUTERINE DEVICE REMOVE INTRAUTERINE DEVICE LEVONORGESTREL IU 52MG 5 YR Stormy Barajas, CHRISSY.[employer] ANIMAL TECHNOLOGIST [address] [place] [address] [facility] [address] [place] [address] Referral ID Status Reason Start Date Expiration Date V isits Requested Visits Authorized [id number] Closed Auto-Generate d Referral 03/13/2022 04/26/2022 1 1 Reason Comments Care Reason Comments Miscarriage Reason Comments Post-Op Visit Reason Comments Care Reason Onset Date Comments Care 02/02/2023 Immunizations 02/02/2023 Flu vaccination Reason Onset Date Comments Care 03/06/2023 Reason Onset Date Comments Care 03/18/2023 Specialty Diagnoses / Procedures Referred By Elke fernandez Referred To Contact [facility] Diagnoses 12 weeks gestation of Encounter for supervision of other normal in first trimester AMA (advanced maternal age) multigravida 35+, first trimester Procedures OBSTETRIC ULTRASOUND WHI US PREG UTERUS AFTER 1ST TRIMEST GESTATION Meka Smith MD [address] [place] [address] [facility] [address] [place] [address] Referral ID Status Reason Start Date Expiration Date V isits Requested Visits Authorized [id number] Closed Auto-Generate d Referral 02/02/2023 02/02/2024 1 1 Specialty Diagnoses / Procedures Referred By Elke fernandez Referred To Contact [facility] Diagnoses Multigravida of advanced maternal age in second trimester Encounter for supervision of other normal in second trimester Procedures OBSTETRIC ULTRASOUND WHI US PREG UTERUS AFTER 1ST TRIMEST GESTATION Meka Smith MD [address] [place] [address] [facility] [address] [place] [address] Referral ID Status Reason Start Date Expiration Date V isits Requested Visits Authorized [id number] Closed Auto-Generate d Referral 04/17/2023 04/16/2024 1 1 Reason Onset Date Comments Care 06/15/2023 INFORMATION SOURCE (unrecogn ized section and content) FOR RECORDS PERTAINING TO PATIENTS WHO ARE OR HAVE BEEN ENROLLED IN A CHEMICAL DEPENDENCY/SUBSTANCEABUSE PROGRAM, SOME INFORMATION MAY BE OMITTED. This clinical summary was aggregated from multiple sources. Caution should be exercised in using it in the provision of clinical care. This summary normalizes information from multiple sources, and as a consequence, information in this document may materially change the coding, format and clinical context of patient data. In addition, data may be omitted in some cases. CLINICAL DECISIONS SHOULD BE BASED ON THE PRIMARY CLINICAL RECORDS. [facility]. provides no warranty or guarantee of the accuracy or completeness of information in this document.
[2023-06-23 02:14] VITALS: BP 114/57; PULSE 107; PULSE 108; TEMP 36.7; O2SAT 96
[2023-06-23 02:17] VITALS: BMI 35.5
--- NOTE | 2023-06-25 12:25 | OB.TRI.NOTE ---
HPI - General General Date of Admission: 06/23/23 Date of Service: 06/23/23 HPI Narrative ROXANNA MOSS, is a 38 F who presents Maternal Data Information Final MILVIA: 08/12/23 Gestational age: 33 1/7 PFSH PFSH Allergy/AdvReac Type Severity Reaction Status Date / Time No Known Allergies Allergy Verified 06/23/23 02:17 NST FHR Rate Baby A Baseline: 120 Variability:: Moderate Accelerations:: 15 x 15 Decelerations:: None NST Reactive:: Yes FHR Category:: Category I Uterine Activity:: irritability Assessment & Plan (1) Decreased movement: PLAN: High risk [place] parous female 2 para 0 for decreased movement. NST is reactive. Patient was discharged home with instructions to follow-up as scheduled or as needed.
== END 2023-06-23 02:57 | disposition home or self-care (01) ==
LOC: WPOUT 01:55 → WP 01:56
PROVIDERS: Referring Provider Obstetrics & Gynecology; Visit Provider Obstetrics & Gynecology
DX: O36.8130 Decreased fetal movements, third trimester, not applicable or unspecified (principal); Z3A.33 33 weeks gestation of pregnancy
CPT/HCPCS: 59025; 59050; 99221; G0378

== ENCOUNTER 2023-08-05 09:35 | Inpatient (IN) | payer OTHER, SELFPAY ==
[2023-06-23 02:14] VITALS: RESP 16
--- NOTE | 2023-07-28 11:43 | HP.PCM_ITS ---
History and Physical Date of Admission: 08/05/23 HPI: The patient is a 38 year old female presenting for pre-operative visit. She is scheduled for and tubal sterilization, for transverse lie and sterilization request on 08/05/23. Procedure discussed along with risks, benefits and complications. Other alternatives discussed for management. Consent form signed? Yes. ? ? PAST MEDICAL HISTORY PAST MEDICAL HISTORY Diagnosis Date ? NEGATIVE MEDICAL HISTORY ? ? ? PAST SURGICAL HISTORY PAST SURGICAL HISTORY Procedure Laterality Date ? APPENDECTOMY ? CURRENT MEDICATIONS Current Outpatient Medications Medication Sig Dispense Refill ? ondansetron (ZOFRAN) 4 mg tablet Take 1 tablet by mouth every 8 hours as needed for nausea/vomiting. 30 tablet 1 ? famotidine (PEPCID) 40 mg tablet Take 1 tablet by mouth once daily. 30 tablet 4 ? aspirin, enteric coated (ASPIRIN, ENTERIC COATED) 81 mg EC tablet Take 1 tablet by mouth once daily. ? ? ? prental multivitamin 27 mg iron- 800 mcg tablet Take 1 tablet by mouth once daily. ? ? ? L.acid/B.animalis,bifidum/FOS (PROBIOTIC COMPLEX ORAL) Take by mouth. ? ? ? No current facility-administered medications for this visit. ? ? ALLERGIES: Patient has no known allergies. ? PERSONAL HISTORY: SOCIAL HISTORY Social History ? Tobacco Use ? Smoking status: Never ? Smokeless tobacco: Never Vaping Use ? Vaping Use: Never used Substance Use Topics ? Alcohol use: Not Currently ? ? Comment: socially ? Drug use: No ? FAMILY HISTORY: FAMILY HISTORY FAMILY HISTORY Problem Relation Age of Onset ? Hypertension Mother ? ? Lipids Mother ? ? Depression Mother ? ? other (accidental ) Father ? ? work accident ? No Known Problems Sister ? ? Diabetes Maternal Grandmother ? ? Hypertension Maternal Grandmother ? ? Aneurysm Maternal Grandfather ? ? Heart Maternal Grandfather ? ? Dementia Paternal Grandmother ? ? Emphysema Paternal Grandfather ? ? ? REVIEW OF SYMPTOMS: GENERAL: denies fevers or chills ENDOCRINOLOGY: has not been on steroids Cardiology : denies palpitations or chest pain Respiratory: denies SOB or cough Hematology: denies history of prolonged bleeding or easy bruising or VTE Allergy: Denies history of personal or family history of allergy to anesthesia ? PHYSICAL EXAMINATION: ? VITALS: Last menstrual period 11/05/2022. ? GENERAL: The patient is well nourished, well hydrated in no acute distress. , The patient is oriented to time, place, and person. NECK: Supple. No lynphadenopathy, normal thyroid, no thyromegaly. LUNGS: Clear to auscultation bilaterally. no wheezes, rhonchi or rales HEART: Regular rate and rhythm, Normal heart sounds, and No murmurs or gallops abd- soft, nontender, gravid ? IMPRESSION: Estimated Date of Delivery: 08/12/23 transverse lie and sterilization request ? PLAN: The risks/benefits/alternatives and personal involved for the planned c- section and tubal were reviewed with the patient. Her questions were answered to her satisfaction and she desires to proceed. Consent was signed. I reviewed with her postop instructions and expectations. ? ? I have reviewed and updated past medical and surgical history, medications and allergies Assessment & Plan Assessment/Plan (1) 39 weeks gestation of : (2) High-risk , elderly multigravida in third trimester: (3) Advanced maternal age during in third trimester: (4) Transverse lie with problem: (5) Sterilization:
[2023-08-05] VITALS (14 sets, daily range): BP systolic 97–112; BP diastolic 47–92; PULSE 86–114; RESP 16–18; TEMP 35.8–36.9; O2SAT 94–99; BMI 36.5
[2023-08-05] MEDS: Lactated Ringers 1,000 ML 999 ML IV (10:20)
[2023-08-05 10:40] LABS: Absolute Lymphocyte Count 1.32 X10^3/uL (0.83-4.51); Absolute Neutrophil Count 7.6 X10^3/uL (2.0-7.7); Basophil# 0.02 X10^3/uL; Basophil% 0.2 % (0-1); Eosinophil# 0.04 X10^3/uL; Eosinophils% 0.4 % (0-5); Hematocrit 34.9 % (37-47); Hemoglobin 11.9 g/dL (12.0-15.0); Lymphocyte # 1.32 X10^3/ul (0.83-4.51); Lymphocyte % 13.2 % (19-41); Mean Corp Hgb Conc 34.1 g/dL (32-36); Mean Corpuscular Hgb 31.1 pg (27.0-32.0); Mean Corpuscular Volume 91.1 fL (81-99); Mean Platelet Vol. 11.1 fl (6.2-12.0); NRBC Flagged by Analyzer 0 % (0-5); Neutrophil # 7.58 X10^3/uL (2.7-7.7); Neutrophil % 75.6 % (47-70); Platelet Count 224 K/mm3 (150-450); RBC Distribution Width CV 13.9 % (11.6-14.6); RBC Distribution Width SD 45.8 fl (35.1-43.9); Red Blood Count 3.83 M/mm3 (4.2-5.4)
--- NOTE | 2023-08-05 11:10 | NURSING ---
Report received, taking over pt care at this time.
[2023-08-05] MEDS: Acetaminophen 500 MG Tablet 1000 MG PO ×2 (11:34→17:32)
[2023-08-05 11:40] LABS: Syphilis Antibodies Non-reactive
[2023-08-05] MEDS: Sodium Citrate/Citric Acid 30 ML UDC PO (11:54)
[2023-08-05] MEDS: Cefazolin 2 GM in 0.9% Normal Saline (100mL Bag) 100 ML IV (11:58)
--- NOTE | 2023-08-05 12:01 | EX.PCM.OBRPT ---
Assessment & Plan (1) Complete breech: (2) High-risk , elderly multigravida in third trimester: (3) Advanced maternal age during in third trimester: (4) 39 weeks gestation of : Maternal Data Information Final MILVIA: 08/12/23 Gestational age: 39 Details Operative Information Date of Procedure: 08/05/23 Pre-Operative Diagnosis: breech, sterilization request Post-Operative Diagnosis: same Indications for : Desires elective sterilization Classification: Scheduled Procedure Type: low transverse (with bilateral salpingectomy) derrick builder #1: Deja Larose Type of Anesthesia: Spinal Anesthesiologist: Jessica Stewart Special Medications: duramorph Antibiotic Given: Ancef 2 grams IV x1 Drain: Vieira to straight drain Estimated Blood Loss: 800 Fluids Replaced: 1200 Procedure Start Time: 12:19 Procedure Stop Time: 13:01 Time of Delivery: 12:23 Findings Description of Procedure: The patient was taken to the operating room. She was prepped and draped in the dorsal supine position with a leftward tilt. A Pfannenstiel skin incision was made approximately 2 cm above the symphysis pubis and carried through to underlying layer fascia with the scalpel. The fascia was incised incised in the midline and extended laterally with the Montgomery scissors. The fascia was dissected off the rectus muscles with blunt and sharp dissection. The rectus muscles were in the midline and the peritoneum was entered bluntly. The peritoneal incision was stretched and the bladder blade was placed. The uterine incision was made in a low transverse fashion with the scalpel and extended superiorly and inferiorly with blunt dissection. The amniotic membranes were ruptured bluntly and clear amniotic fluid returned. The infant's breech was brought out through the incision and the legs were swept out individually. The was brought out to the shoulders and the arms were swept out individually with the fetus in a backup position. The head was then delivered with gentle fundal pressure in a flexed position with gentle traction on the maxilla. The mouth and nares were bulb suctioned. The cord was clamped and cut as the was stimulated. Cord clamping was delayed. The infant was handed off to the waiting nursing staff. The placenta was delivered with fundal massage and gentle traction in the standard fashion. The uterus was exteriorized and cleared of all clots and debris. The cervix was dilated with a ring forcep. The uterine incision was closed with #1 Vicryl in a running locked fashion. A second layer of the same suture was used in an imbricating fashion obtain hemostasis. Several [id number] #1 Vicryl sutures were needed to control bleeding from some sinuses. The incision was examined and was found to be hemostatic. The uterus was placed back into the peritoneal cavity and hemostasis was again confirmed. Devan was placed over the uterine incision. The left tube was identified and followed out to the fimbriated end. The LigaSure device was used to clamp, seal and transect the antimesenteric portion of the tube to the cornual insertion of the tube. The tube was then amputated from the uterus with the LigaSure device and the pedicles were hemostasis. The same procedure was performed on the contralateral side and the specimens were handed off. The rectus muscles were examined and any bleeding was Bovie cauterized. The parietal peritoneum and rectus muscles were closed en bloc with an 0 Vicryl running suture. Devan was placed over the rectus muscles. The rectus fascia was examined and any bleeding was Bovie cauterized and the rectus fascia was closed with #1 PDS suture in a running standard fashion. The subcutaneous tissue was examining and any bleeding was Bovie cauterized. Devan was placed in the subcutaneous tissue. The subcutaneous tissue was reapproximated with 3-0 Vicryl suture. The skin was closed in a subcuticular fashion by the ROTARY ENVELOPE MACHINE OPERATOR with me present in the labor and delivery suite. I performed the remainder of the procedure with assistance. All sponge, lap, and needle counts were correct. The patient was taken to her room for recovery in a stable condition. Presentation: Positive for Complete Breech Amniotic Membrane Rupture Type: Artificial Amniotic Fluid Description: Clear Placental Delivery Description: Expressed Placenta Disposition: [facility] Specimen(s) Sent to Pathology: Bilateral fallopian tubes Cord Vessel Description: 3 Vessels Cord Entanglement: Around neck x 2, loose Nuchal Cord Compression: Without compression Infant A Gender: Male (Albino) (1 minute): 9 (5 minute): 10 Delayed Cord Clamping: Yes Complications Complications: none Admit VTE Documentation VTE Present on Admission: No VTE Mechan Device Prophylaxis: SCD's VTE Pharm Prophylaxis Ordered: Yes
[2023-08-05] MEDS: Oxytocin 15 Units/NS 250ml 15 UNITS/250 ML IV.SOLN 83 UNITS IV (13:52)
[2023-08-05] MEDS: 0.9% Saline Lock 10 ML Syringe IV (14:35)
[2023-08-05] MEDS: Ketorolac 30 MG/ML Syringe IV ×2 (14:42→21:27)
--- NOTE | 2023-08-05 15:30 | NURSING ---
Report given to Ilana HOGAN, taking over pt and care at this time.
[2023-08-05] MEDS: Lactated Ringers 1,000 ML 100 ML IV (17:31)
--- NOTE | 2023-08-05 19:16 | FALS_PTH ---
PATIENT: ROXANNA MOSS LOC: [facility] U#:[id number] AGE/SX: 38/F ROOM: WP010 RE08/05/[address]: Dr. Amy Lopez MD : 1985 BED: 1 DIS: 08/07/2023 SPEC #: [id number] RECD: 08/06/23 12:01 STATUS: SYDNEE KATIANA #: [id number] SANDRA: 08/05/23 19:[address]: Amy Lopez DEPT: SURGICAL PATHOLOGY RECD BY: Elly Jacobson ENTERED: 08/06/23 12:02 SP TYPE: FALL TUBES OTHR DR: No Primary Care Phys Tissues: Fallopian tube Procedures: Surgery Specimen Level II HEADER OPERATION: Tubal ligation PRE-OP DIAGNOSIS: section TISSUE SUBMITTED: Fallopian tubes MICROSCOPIC DIAGNOSIS Right fallopian tube, salpingectomy: Benign paratubal cysts. Left fallopian tube, salpingectomy: Complete segment of fallopian tube with no pathologic change. AM: 08/07/23 MICROSCOPIC DESCRIPTION Slides are reviewed. GROSS DESCRIPTION Received in fixative is one container labeled with the patient's name and designated bilateral fallopian tubes left tube with suture. The specimen consists of bilateral fallopian tubes including fimbrial ends. Right fallopian tube measures7.5 cm in length and 0.5 cm in diameter. The left fallopian tube measures 5.5cm in length ang 0.5cm in diameter. A detached piece of tissue consistent with fimbrial end and a paratubal cyst. Paratubal cyst measuring 1.5 x 1.0 x 1.0cm. Sections reveal unremarkable cut surfaces. Gang Drill Operator sections are submitted in two cassettes as follows: 1- right fallopian tube and paratubal cyst, 2- left fallopian tube / SJ: 08/06/23 TC:5 CPT: 61017 x2 ,06817
[2023-08-05 19:43] LABS: Pathology Specimen OB SEE PATHOLOGY REPORT
[2023-08-06] VITALS (7 sets, daily range): BP systolic 92–114; BP diastolic 55–75; PULSE 92–105; RESP 16–18; TEMP 36.4–36.8; O2SAT 97–98
[2023-08-06] MEDS: Acetaminophen 500 MG Tablet 1000 MG PO ×4 (00:47→19:42)
[2023-08-06] MEDS: Enoxaparin 40 MG/0.4 ML Syringe SC ×2 (00:47→12:35)
[2023-08-06] MEDS: Ketorolac 30 MG/ML Syringe IV ×2 (03:43→09:58)
[2023-08-06 05:59] LABS: Hematocrit 29.3 % (37-47); Hemoglobin 9.6 g/dL (12.0-15.0); Mean Corp Hgb Conc 32.8 g/dL (32-36); Mean Corpuscular Hgb 30.7 pg (27.0-32.0); Mean Corpuscular Volume 93.6 fL (81-99); Mean Platelet Vol. 11.3 fl (6.2-12.0); Platelet Count 206 K/mm3 (150-450); RBC Distribution Width SD 47.6 fl (35.1-43.9); Red Blood Count 3.13 M/mm3 (4.2-5.4); White Blood Count 17.4 K/mm3 (4.4-11.0)
[2023-08-06] MEDS: Senna/Docusate Sodium 1 Tablet PO (09:57)
[2023-08-06] MEDS: 0.9% Saline Lock 10 ML Syringe IV (09:58)
--- NOTE | 2023-08-06 10:58 | PCM.PN.OB ---
Subjective Subjective Pain well-controlled. Average lochia. Denies nausea or vomiting. Objective Data Objective Data Vital Signs: Vital Signs Temp Pulse Resp BP Pulse Ox O2 Del Method 97.8 F 92 16 96/62 97 Room Air 08/06/23 09:05 08/06/23 09:05 08/06/23 09:05 08/06/23 09:05 08/06/23 03:37 08/06/23 03:37 Oxygen Delivery Method Room Air Weight: 96.524 kg Body Mass Index (BMI) 36.5 Intake & Output: Intake and Output for Last 24 Hours 08/04/23 08/05/23 08/06/23 23:59 23:59 23:59 Intake Total 1860 / 1860 1000 / 1000 Output Total 1600 / 1600 1600 / 1600 Balance 260 / 260 -600 / -600 Lab / Micro Data 08/06/23 05:45 Labs: Laboratory Results - last 24 hr 08/05/23 10:20: Syphilis Total Ab Non-reactive, Blood Type A POSITIVE, Antibody Screen NEGATIVE 08/06/23 05:45: WBC 17.4 H, RBC 3.13 L, Hgb 9.6 L, Hct 29.3 L, MCV 93.6, MCH 30.7, MCHC 32.8, RDW Std Deviation 47.6 H, RDW Coeff of [place]on 14.0, Plt Count 206, MPV 11.3 Physical Exam Const alert General Appearance: cooperative GI GI Narrative: soft, moderate distention, fundus firm, appropriately tender. Abdominal bandage clean dry and intact Assessment & Plan (1) delivery delivered: PLAN: Postoperative day #1 status post primary section for breech. is doing well. Patient has acute blood loss anemia appropriate for blood loss during surgery superimposed on chronic antepartum anemia. She is tolerating this well. Continue vitamin for now. Routine postop care. Likely home tomorrow. breast-feeding.
[2023-08-06] MEDS: Ibuprofen 600 MG Tablet PO ×2 (15:34→21:13)
[2023-08-06] MEDS: SimETHICONE 80 MG Chewable Tablet PO (19:43)
[2023-08-07] MEDS: Enoxaparin 40 MG/0.4 ML Syringe SC ×2 (00:29→12:16)
[2023-08-07] MEDS: Acetaminophen 500 MG Tablet 1000 MG PO ×3 (00:30→12:16)
[2023-08-07] MEDS: Ibuprofen 600 MG Tablet PO ×2 (03:39→09:53)
[2023-08-07 03:40] VITALS: BP 117/70; PULSE 93; RESP 16; TEMP 36.5; O2SAT 97
--- NOTE | 2023-08-07 07:12 | PCM.PN.OB ---
Subjective Subjective Feels good. No complaints. Breast feeding. Pain controlled. Lochia decreasing. Ambulating and voiding without difficulty. Objective Data Objective Data Vital Signs: Vital Signs Temp Pulse Resp BP Pulse Ox O2 Del Method 97.7 F L 93 16 117/70 97 Room Air 08/07/23 03:40 08/07/23 03:40 08/07/23 03:40 08/07/23 03:40 08/07/23 03:40 08/07/23 03:40 Oxygen Delivery Method Room Air Weight: 96.524 kg Body Mass Index (BMI) 36.5 Intake & Output: Intake and Output for Last 24 Hours 08/05/23 08/06/23 08/07/23 23:59 23:59 23:59 Intake Total 1860 / 1860 1000 / 1000 Output Total 1600 / 1600 1600 / 1600 Balance 260 / 260 -600 / -600 Lab / Micro Data 08/06/23 05:45 Physical Exam Const alert General Appearance: cooperative GI GI Narrative: soft, moderate distention, fundus firm, appropriately tender. Abdominal bandage clean dry and intact Assessment & Plan (1) delivery delivered: PLAN: Discharge home (2) Sterilization:
--- NOTE | 2023-08-07 07:19 | DS.PCM_ITS ---
Providers Date of Admission: 08/05/23 Date of Discharge: 08/07/23 Primary Care Physician: No Primary Care Phys Reason For Visit: PRIMARY Diagnosis Discharge Diagnosis (1) delivery delivered: Status: Acute Code(s): O82 - Encounter for delivery without indication Plan: Discharge home (2) Sterilization: Status: Acute Code(s): Z30.2 - Encounter for sterilization Medications at Discharge Home Medications vit no.95-ferrous fumarate 28 mg-folic acid 800 mcg tablet () 1 tab PO DAILY 08/05/23 ibuprofen 600 mg tablet 600 mg PO Q6H #30 tabs 08/07/23 oxycodone 5 mg tablet 5 mg PO Q4H PRN PRN Pain Score 4-10 5 days #10 tabs 08/07/23 Hospital Course Operations section (with sterilization) Procedures None Summary of Care Provided Minutes Spent on Discharge: 23 Hospital Course: Primary for breech presentation. Sterilization at the time of c- section. course uncomplicated. on discharge Physical Exam Const alert General Appearance: cooperative GI GI Narrative: soft, moderate distention, fundus firm, appropriately tender. Abdominal bandage clean dry and intact Weight / BMI Weight Weight: 96.524 kg Body Mass Index (BMI) 36.5 ABG / Lab / Microbiology Data 08/06/23 05:45 D/C Instructions Discharge Diet: No restrictions May resume sexual activity in: 4-6 weeks Lifting Restrictions: 20 pounds Additional Activity Instructions: Nothing in the vagina for 4-6 weeks. You may return to work/school in 6 weeks. Call your doctor if your incision/area has: Continuous Slow Oozing, Sudden Increased Bleeding, Increased Pain/ Swelling, Increased Redness and Foul Smelling Discharge Call your doctor if you observe: Fever of 101 or Higher and Using more than 1 pad per hour (for 2 hours) Suture Line Care: Avoid Pulling/Pushing and Avoid Pinching/Bending Cleanse incision/area with: Keep Dressing Clean & Dry Please Follow Up With: Amy Lopez MD When: Call to make an appointment for an incision check in 1-2 [phone]. You will need a post check in 6 weeks. Meaningful Use Info Meaningful Use Diagnoses (Choose all that apply): None applicable Discharge Plan Admission Admit Date/Time: 08/05/23 09:35 Primary Reason for Your Visit: Scheduled Attending Provider: Amy Lopez Primary Care Provider: Care Physician,No Primary Instructions Patient Instructions: Section Dc Discharge Orders/Prescriptions Prescriptions: New ibuprofen 600 mg Tablet 600 mg PO Q6H Qty: 30 0RF oxycodone 5 mg Tablet 5 mg PO Q4H PRN PRN (Reason: Pain Score 4-10) 5 Days Qty: 10 0RF Continued PNV cmb#95-ferrous fumarate-FA [] 28 mg iron- 800 mcg tablet 1 tab PO DAILY Discontinued aspirin 81 mg capsule 81 mg PO DAILY Referrals / Follow Up: Care Physician,No Primary [Primary Care Provider] - Disposition Disposition (needs filled in before D/C Order can be placed): Home, Self Care
[2023-08-07 08:55] VITALS: BP 103/67; PULSE 93; RESP 16; TEMP 36.2; O2SAT 97
[2023-08-07] MEDS: Senna/Docusate Sodium 1 Tablet PO (09:54)
[2023-08-07 12:24] VITALS: BP 103/67; PULSE 93; RESP 18; TEMP 36.2; O2SAT 97
--- NOTE | 2023-08-07 12:38 | CASEMGMT ---
Social Work Assessment Labor and Delivery Unit Patient Address:[facility] [place] [address] Phone number: [phone] Date of Referral: 08/05/23 Time of Referral:? [id number] Referred By: Amy Lopez Date of Intervention: 08/07/23 ?? Time of Intervention:? 1140 Reason for Referral:?father was an alcoholic Sw completed chart review and acknowledges social work consult due to maternal grandpa being an alcoholic. Sw presented to bedside and introduced self to mother of baby (MOB- Aliyah) and father of baby (FOB- Son). Sw explained reason for sw consult and completed psychosocial assessment. History obtained from: medical records, MOB and FOB Household composition: Currently residing in the family home is MOB, FOGabby and now baby when ready for discharge. Parents deny any one else living with them at this time. Parents deny any issues or concerns with their residence. Patient's parent/guardian status:? ?MOB states that parents met in 2017 at a [employer], they have been together for 7 years. No concerns reported regarding domestic violence or intimate partner violence. Medical History: ?MARCELLA is 38 year old female who is 1, para 0- now 1 following labor and delivery of baby. MARCELLA received routine care during with [facility]. MARCELLA presented to hospital for due to baby being breech. Baby, named Albino Sorenson, was born weighing 8lb 16oz with apgars of 9 and 10 at one and five minutes of life, respectfully. Baby will be followed by Dr. Rivas for pediatrics. MARCELLA states that she is breast feeding and it is going well. Educational Status:? Both parents graduated from high [employer], mob obtained a bachelors degree. NO concerns reported with reading, learning or comprehension. Financial Status: Both parents are gainfully employed outside of the home. 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 EDGAR works in [employer] at [employer]. Supplies:??Parents have obtained all necessary baby supplies, including: car seat, safe sleep space, clothes, diapers and wipes. MARCELLA states that she does have a breast pump for home. Childcare/Caregiver(s):? MOB will be the primary caregiver to baby along with FOB when he is not working. When both parents have returned to work they have an at-home transportation refrigeration technician that they will be taking baby to. Transportation:?? Both parents have their drivers license and reliable means of transportation. No barriers at this time. Programs/Agencies Involved: ???Parents are not connected to any community resources that help them financially. MOB states that they are over income. Children Services/Legal Issues:???No history of involvement, no issues or concerns warranting referral at this time. Behavioral Health Issues: ??Mental Health History:??Parents deny any mental health diagnoses. ? Substance Use History: MOB denies substance use prior to and during . ?? Family History: MOB states that her father was an alcoholic, but has since . Sw and MOB discussed about utilizing healthy coping mechanisms if she were to struggle with her mental health during this period, opposed to seeking help from substances. MOB expressed understanding. ? Drug Screens: ?No drug screens observed in chart review. ? Family/Social Stressors:?Parents deny any issues, concerns, stressors or needs at this time. Support Systems: MOB states that FOB and both sets of grandma's are supportive. Depression/Shaken Baby/Safe Sleeping:? Sw educated parents on signs and symptoms of baby blues and depression and anxiety to be on the lookout for at this time. Parents express understanding. Sw educated parents on shaken baby prevention and ABCs of safe sleep, parents express understanding. ASSESSMENT:? MOB and baby admitted following labor and delivery of . MOB with family history of alcoholism. MOB acknowledges need to utilize healthy and appropriate coping mechanism if she were to struggle with her mental health during this period. Parents have obtained all necessary baby supplies and have natural supports in place. FOB observed to provide loving and appropriate hands on care of . Parents were talkative during completing of psychosocial assessment. Parents were receptive to sw involvement and support. Parents were provided information on local resources available to them ([facility]), Help Me Grow, mental health literature, shaken baby info and ABCs of safe sleep. PLAN:?MOB and baby to be discharged when medically ready. ?No other services requested or indicated. Abe Alvarez, WARD SECRETARY, CORK INSULATOR HELPER
--- NOTE | 2023-08-11 16:09 | NURSING ---
Follow up phone call performed-- pt. denies s+s of complications. Vaginal bleeding WNL. Incision doing well-- better everyday. going well, has seen x2. No questions or concerns.
== END 2023-08-07 13:45 | disposition home or self-care (01) | DRG 785 ==
PROVIDERS: Admitting Provider Obstetrics & Gynecology; Visit Provider Obstetrics & Gynecology
PROC: 10D00Z1 Extraction of Products of Conception, Low, Open Approach (ICD-10-PCS; CPT 59514; principal; 2023-08-05 11:45)
DX: O32.1XX0 Maternal care for breech presentation, not applicable or unspecified (principal); N83.8 Other noninflammatory disorders of ovary, fallopian tube and broad ligament; O32.2XX0 Maternal care for transverse and oblique lie, not applicable or unspecified; O69.81X0 Labor and delivery complicated by cord around neck, without compression, not applicable or unspecified; O34.83 Maternal care for other abnormalities of pelvic organs, third trimester; O99.02 Anemia complicating childbirth; Z37.0 Single live birth; Z3A.39 39 weeks gestation of pregnancy; Z30.2 Encounter for sterilization
CPT/HCPCS: 59025; 59050; 76815; 85025; 85027; 86780; 86850; 86900; 86901; 88302; 99221; J7120; A4216; G0378; J2405